=== PATIENT | female | born 1940 | race Caucasian/White ===

== ENCOUNTER 2016-07-16 13:38 | Outpatient (CLI) | payer MEDICARE, OTHER | END 2016-07-16 13:39 | disposition home or self-care (01) | DX: Z12.31 Encounter for screening mammogram for malignant neoplasm of breast (principal); Z80.3 Family history of malignant neoplasm of breast ==

== ENCOUNTER 2016-07-16 13:54 | Outpatient (CLI) | payer MEDICARE, OTHER | END 2016-07-16 13:55 | disposition home or self-care (01) | DX: M85.89 Other specified disorders of bone density and structure, multiple sites (principal); Z78.0 Asymptomatic menopausal state ==

== ENCOUNTER 2016-08-22 07:54 | Day surgery (SDC) | payer MEDICARE, OTHER ==
[2016-08-22] MEDS ORDERED: LACTATED RINGERS 1,000 ML IV ONE (08:29)
[2016-08-22] MEDS ORDERED: fentaNYL 250 MCG/5 ML VIAL IVP ONE (09:22)
[2016-08-22] MEDS ORDERED: MIDAZOLAM 2 MG/2 ML VIAL IVP ONE (09:22)
[2016-08-22] MEDS ORDERED: ONDANSETRON 4 MG/2 ML VIAL ONE (10:32)
== END 2016-08-22 07:55 | disposition home or self-care (01) ==
PROC: 0DJD8ZZ Inspection of Lower Intestinal Tract, Via Natural or Artificial Opening Endoscopic (ICD-10-PCS; principal; 2016-08-22 09:00)
DX: Z12.11 Encounter for screening for malignant neoplasm of colon (principal); K64.8 Other hemorrhoids; E03.9 Hypothyroidism, unspecified; Z88.2 Allergy status to sulfonamides
CPT/HCPCS: G0121; J3010; J7120

== ENCOUNTER 2016-09-12 06:50 | Outpatient (CLI) | payer MEDICARE, OTHER ==
[2016-09-12] MEDS ORDERED: GADOBUTROL 7.5 MMOL/7.5 ML VIAL IVP ONE (08:56)
== END 2016-09-12 06:51 | disposition home or self-care (01) ==
DX: G93.9 Disorder of brain, unspecified (principal)
CPT/HCPCS: 36415; 70553; 82565; A9585

== ENCOUNTER 2017-01-16 07:37 | Outpatient (CLI) | payer MEDICARE, OTHER ==
[2017-01-16 12:23] LABS: BASOPHILS # (AUTO) 0.1 10^3/uL (0.0-0.1); BASOPHILS % (AUTO) 2.4 %; EOSINOPHILS # (AUTO) 0.1 10^3/uL (0.0-0.7); EOSINOPHILS % (AUTO) 1.6 %; HCT - HEMATOCRIT 40.1 % (37.0-47.0); HGB - HEMOGLOBIN 13.6 g/dL (12.0-16.0); LYMPHOCYTES # (AUTO) 1.9 10^3/uL (1.5-3.5); MEAN CORPUSCULAR HEMOGLOBIN 31.5 pg (27.0-31.0); MEAN CORPUSCULAR HGB CONC 33.8 g/dL (32.0-36.0); MEAN CORPUSCULAR VOLUME 93.1 fL (81.0-99.0); MEAN PLATELET VOLUME 7.5 fL (7.9-10.8); MONOCYTES # (AUTO) 0.4 10^3/uL (0.0-1.0); MONOCYTES % (AUTO) 6.6 %; NEUTROPHILS # (AUTO) 3.5 10^3/uL (1.5-6.6); NEUTROPHILS % (AUTO) 58.4 %; NUCLEATED RED BLOOD CELLS AUTO 0.1 /100WBC; RED BLOOD COUNT 4.31 10^6/uL (4.20-5.40); RED CELL DISTRIBUTION WIDTH 12.7 % (12.0-15.0)
[2017-01-16 12:39] LABS: ALBUMIN/GLOBULIN RATIO 1.4 (1.0-2.2); BILIRUBIN,TOTAL 0.5 mg/dL (0.2-1.0); BUN - BLOOD UREA NITROGEN 14 mg/dL (6-20); CALCIUM 8.6 mg/dL (8.5-10.3); CARBON DIOXIDE - CO2 25 mmol/L (21-32); CHLORIDE 103 mmol/L (101-111); CREATININE 0.7 mg/dL (0.4-1.0); GFR - MDRD 82 (>89); GLUCOSE 91 mg/dL (70-100); POTASSIUM 3.5 mmol/L (3.5-5.0); SODIUM 136 mmol/L (135-145); TOTAL PROTEIN 6.9 g/dL (6.7-8.2)
[2017-01-18 12:37] LABS: ANA SCREEN NEGATIVE (NEGATIVE)
== END 2017-01-16 07:38 | disposition home or self-care (01) ==
LOC: LAB.R 07:37
PROVIDERS: ATTEND Nurse Practitioner Primary Care
DX: R15.2 Fecal urgency (principal); Z79.899 Other long term (current) drug therapy
CPT/HCPCS: 80053; 82378; 84443; 85025; 85651; 86038; 86140

== ENCOUNTER 2018-01-21 08:00 | Outpatient (CLI) | payer MEDICARE, OTHER ==
[2018-01-21 14:13] LABS: BASOPHILS # (AUTO) 0.1 10^3/uL (0.0-0.1); BASOPHILS % (AUTO) 1.5 %; EOSINOPHILS # (AUTO) 0.1 10^3/uL (0.0-0.7); EOSINOPHILS % (AUTO) 1.5 %; HGB - HEMOGLOBIN 13.9 g/dL (12.0-16.0); LYMPHOCYTES # (AUTO) 1.8 10^3/uL (1.5-3.5); MEAN CORPUSCULAR HEMOGLOBIN 31.8 pg (27.0-31.0); MEAN CORPUSCULAR HGB CONC 33.6 g/dL (32.0-36.0); MEAN CORPUSCULAR VOLUME 94.7 fL (81.0-99.0); MEAN PLATELET VOLUME 7.7 fL (7.9-10.8); MONOCYTES # (AUTO) 0.4 10^3/uL (0.0-1.0); MONOCYTES % (AUTO) 6.8 %; NEUTROPHILS # (AUTO) 3.5 10^3/uL (1.5-6.6); NEUTROPHILS % (AUTO) 59.2 %; PLT - PLATELET COUNT 312 10^3/uL (130-450); RED BLOOD COUNT 4.37 10^6/uL (4.20-5.40); RED CELL DISTRIBUTION WIDTH 12.8 % (12.0-15.0); WHITE BLOOD COUNT 5.9 x10^3/uL (4.8-10.8)
[2018-01-21 14:21] LABS: ALBUMIN 4.1 g/dL (3.2-5.5); ALBUMIN/GLOBULIN RATIO 1.4 (1.0-2.2); CALCIUM 8.8 mg/dL (8.5-10.3); CREATININE 0.7 mg/dL (0.4-1.0); TOTAL PROTEIN 7.1 g/dL (6.7-8.2)
== END 2018-01-21 08:01 ==
LOC: LAB.R 08:00
PROVIDERS: ATTEND Internal Medicine
DX: Z79.899 Other long term (current) drug therapy (principal); E55.9 Vitamin D deficiency, unspecified; I10 Essential (primary) hypertension; E03.9 Hypothyroidism, unspecified
CPT/HCPCS: 80053; 82306; 84443; 85025

== ENCOUNTER 2018-04-22 08:57 | Outpatient (CLI) | payer MEDICARE, OTHER | END 2018-04-22 08:58 | disposition home or self-care (01) | LOC: LAB.R 08:57 | PROVIDERS: ATTEND Internal Medicine | DX: E03.9 Hypothyroidism, unspecified (principal) | CPT/HCPCS: 84443 ==

== ENCOUNTER 2018-07-06 13:16 | Outpatient (CLI) | payer MEDICARE, OTHER ==
--- NOTE | 2018-07-07 10:36 | DEXA Report ---
Reason: IDIOPATHIC OSTEOPOROSIS Procedure Date: 07/06/2018 Accession Number: [id number] / [id number] Procedure: DEX - Dexa Spine and/or Hip CPT Code: FULL RESULT: EXAM: Dexa Spine and/or Hip DATE: 07/06/2018 1:59 PM CLINICAL HISTORY: IDIOPATHIC OSTEOPOROSIS. Postmenopausal. Steroid use. Hormone replacement therapy. TECHNIQUE: Dual energy x-ray absorptiometry (DXA) was performed on a Nevigo System. Regions measured are the AP Spine, femoral neck, and if needed forearm. COMPARISON: 07/16/2016. In accordance with the International Society for Clinical Densitometry (ISCD) guidelines, data from previous exams may be reanalyzed using current recommendations and techniques. This is done to allow a more accurate basis for comparison with the current study. FINDINGS: The data for the lumbar spine is as follows: BMD (g/cm/cm) T-SCORE Z-SCORE REGION L1 0.832 -2.5 -0.7 L2 0.925 -2.3 -0.5 L3 0.901 -2.5 -0.7 L4 0.959 -2.0 -0.2 TOTAL 0.909 -2.3 -0.4 NOTE: All evaluable vertebrae are used for classification The data for the hip is as follows: BMD (g/cm/cm) T-SCORE Z-SCORE REGION Neck 0.845 -1.4 0.6 TOTAL 0.856 -1.2 0.6 NOTE: The femoral neck or total proximal femur, whichever is lowest, is used for classification. DXA RESULTS SUMMARY: Spine SCAN DATE [age]GE BMD CHANGE VS CHANGE VS PREVIOUS PREVIOUS % 07/06/2018 [age] 0.909 -0.087* -8.7* 07/16/2016 [age] 0[age]996 * Denotes significant change at the 95% confidence level. Denotes dissimilar scan types or analysis methods. DXA RESULTS SUMMARY: Hip SCAN DATE [age]GE BMD CHANGE VS CHANGE VS PREVIOUS PREVIOUS % 07[birth year]06/2018 77.5 0.856 -0.004 -0.5 07/16/2016 [age] 0.860 * Denotes significant change at the 95% confidence level. Denotes dissimilar scan types or analysis methods. IMPRESSION: THE WHO CLASSIFICATION BASED ON THE INTERNATIONAL REFERENCE STANDARD IS OSTEOPENIA. THE FRACTURE RISK IS INCREASED. There has been a statistically significant 8.7% decrease in lumbar spine bone mineral density since 07/16/2016. RECOMMENDATION: Patients with diagnosis of osteoporosis or osteopenia should have regular bone mineral density assessment. For those eligible for Medicare, routine testing is allowed once every 2 years. Testing frequency can be increased for patients who have rapidly progressing disease or for those who are receiving medical therapy to restore bone mass. COMMENT: World Health Organization (WHO) definitions for osteoporosis and osteopenia: NORMAL BMD: T-score at -1.0 or higher, fracture risk is low OSTEOPENIA BMD: T-score between -1.0 and -2.5, fracture risk is increased. OSTEOPOROSIS BMD: T-score at -2.5 or lower, fracture risk is high. National Osteoporosis Foundation recommends: 1. Obtain adequate dietary calcium (at least 1200 mg per day) and vitamin D (400-800 international units per day). 2. Participate, as appropriate, in regular weightbearing and muscle-strengthening exercise. 3. Avoid tobacco use and reduce alcohol and caffeine intake. 4. For more detailed information see the website at www.NOF.org.
== END 2018-07-06 13:17 | disposition home or self-care (01) ==
LOC: DI 13:16
PROVIDERS: ATTEND Internal Medicine
DX: M85.89 Other specified disorders of bone density and structure, multiple sites (principal); Z78.0 Asymptomatic menopausal state
CPT/HCPCS: 77080

== ENCOUNTER 2018-07-28 14:29 | Emergency (ER) | payer MEDICARE, OTHER ==
--- NOTE | 2018-07-28 16:16 | ED Physician Documentation ---
History of Present Illness - Stated complaint Stated Complaint: FEMALE - Chief complaint Chief Complaint: Abd Pain - History obtained from History obtained from: Patient - History of Present Illness Timing: Today Pain level max: 0 Pain level now: 0 Improved by: lying down Worsened by: standing - Additonal information Additional information: 77-year-old female states that she was taking a bath today when she noticed a balloon-like object bulging from her vagina. No pain. No bleeding or discharge. Has never had this happen before. She has had one child via vaginal delivery in the past. Has had problems with her rectum in the past. Review of Systems Constitutional: denies: Fever, Chills Respiratory: denies: Cough GI: denies: Vomiting : denies: Dysuria, Frequency, Hesitancy Skin: denies: Rash Musculoskeletal: denies: Neck pain, Back pain Neurologic: denies: Headache PD PAST MEDICAL HISTORY - Past Medical History Past Medical History: Yes Cardiovascular: Hypertension Respiratory: None Endocrine/Autoimmune: HyPOthyroidism GI: None : None HEENT: None Psych: None Musculoskeletal: Other Derm: None - Past Surgical History Past Surgical History: Yes General: Colonoscopy - Present Medications Home Medications: Ambulatory Orders Medication Instructions Recorded Confirmed Estrogen,Con/M-Progest Acet 1 tab ORAL DAILY 05/12/15 08/22/16 [Prempro 0.3 mg-1.5 mg Tablet] Levothyroxine [Synthroid] 0 mcg ORAL DAILY 05/12/15 08/22/16 Lisinopril 5 mg ORAL DAILY 05/12/15 08/22/16 - Allergies Allergies/Adverse Reactions: Allergies Allergy/AdvReac Type Severity Reaction Status Date / Time Sulfa (Sulfonamide AdvReac Nausea Verified 07/28/18 14:37 Antibiotics) - Social History Does the pt smoke?: No Smoking Status: Never smoker Does the pt drink ETOH?: No Does the pt have substance abuse?: No - Immunizations Immunizations are current?: Yes - POLST Patient has POLST: No PD ED PE NORMAL - Vitals Vital signs reviewed: Yes - General General: Alert and oriented X 3, No acute distress - HEENT HEENT: Moist mucous membranes - Cardiac Cardiac: RRR - Respiratory Respiratory: No respiratory distress, Clear bilaterally - Abdomen Abdomen: Soft, Non tender, Non distended - Female Female : Other (bladder prolapse, easily reducible. otherwise normal exam. also mild cervical prolapse) - Derm Derm: Warm and dry - Neuro Neuro: Alert and oriented X 3 - Psych Psych: Normal mood, Normal affect Results - Vitals Vitals: Vital Signs - 24 hr 07/28/18 07/28/18 14:33 16:23 Temperature 36.8 C 36.8 C Heart Rate 68 68 Respiratory 18 18 Rate Blood Pressure 143/71 H 140/71 H O2 Saturation 97 97 Oxygen O2 Source Room air PD MEDICAL DECISION MAKING - ED course Complexity details: considered differential, d/w patient ED course: 77-year-old female presents the emergency department with what appears to be a cystocele and incomplete cervical prolapse. We will have her follow-up with gynecology for further care. Patient counseled regarding signs and symptoms for which I believe and urgent re-evaluation would be necessary. Patient with good understanding of and agreement to plan and is comfortable going home at this time This document was made in part using voice recognition software. While efforts are made to proofread this document, sound alike and grammatical errors may occur. Departure - Departure Disposition: 01 Home, Self Care Clinical Impression: Cystocele with incomplete uterovaginal prolapse Condition: Good Instructions: Pelvic Organ Prolapse, Cystocele Follow-Up: Tex Morgan MD [Primary Care Provider] - Within 1 week [facility] [Provider Group] Comments: Return if you worsen. you would benefit from a referral to gynecology for further evaluation. Discharge Date/Time: 07/28/18 16:23
[2018-07-28 16:24] VITALS: BP 140/71
== END 2018-07-28 16:23 | disposition home or self-care (01) ==
LOC: ED 14:29
DX: N81.2 Incomplete uterovaginal prolapse (principal); I10 Essential (primary) hypertension; E03.9 Hypothyroidism, unspecified
CPT/HCPCS: 99283

== ENCOUNTER 2018-10-01 18:42 | Emergency (ER) | payer MEDICARE, OTHER ==
[2018-10-01 19:06] LABS: BASOPHILS # (AUTO) 0.1 10^3/uL (0.0-0.1); BASOPHILS % (AUTO) 1.3 %; EOSINOPHILS # (AUTO) 0.1 10^3/uL (0.0-0.7); EOSINOPHILS % (AUTO) 2.1 %; LYMPHOCYTES # (AUTO) 2.7 10^3/uL (1.5-3.5); LYMPHOCYTES % (AUTO) 40.6 %; MEAN CORPUSCULAR HEMOGLOBIN 31.3 pg (27.0-31.0); MEAN CORPUSCULAR HGB CONC 33.1 g/dL (32.0-36.0); MEAN CORPUSCULAR VOLUME 94.4 fL (81.0-99.0); MEAN PLATELET VOLUME 7.7 fL (7.9-10.8); MONOCYTES # (AUTO) 0.6 10^3/uL (0.0-1.0); MONOCYTES % (AUTO) 8.8 %; NEUTROPHILS # (AUTO) 3.1 10^3/uL (1.5-6.6); NEUTROPHILS % (AUTO) 47.2 %; PLT - PLATELET COUNT 267 10^3/uL (130-450); RED BLOOD COUNT 4.47 10^6/uL (4.20-5.40); RED CELL DISTRIBUTION WIDTH 13.1 % (12.0-15.0); WHITE BLOOD COUNT 6.6 x10^3/uL (4.8-10.8)
[2018-10-01 19:19] LABS: ALBUMIN 4.2 g/dL (3.2-5.5); ALBUMIN/GLOBULIN RATIO 1.5 (1.0-2.2); BILIRUBIN,TOTAL 0.6 mg/dL (0.2-1.0); CREATININE 0.9 mg/dL (0.4-1.0)
--- NOTE | 2018-10-01 19:28 | ED Physician Documentation ---
PD HPI CHEST PAIN - Stated complaint Stated Complaint: HEART PALP/IRREG BP - Chief complaint Chief Complaint: Cardiac - History obtained from History obtained from: Patient - History of Present Illness Timing - onset: Other (This is a 77-year-old woman with history of hypothyroidism, chronic GI complaints. She has been fatigued for several months now. She saw her physician at the beginning of June and her thyroid level was low so thyroid hormone was increased. She is noticed for basically as long as she can remember that her blood pressure monitor was reading irregular. Today she went for a walk and bought a new blood pressure monitor because she had up the old one was drawn and this 1 was also reading irregular. She denies shortness of breath. She has ongoing chronic chest pain that she cannot tell me whether it comes and goes or is chronic. She denies pedal edema. She has not anticoagulated or on any diuretics.) Review of Systems Ten Systems: 10 systems reviewed and negative Constitutional: reports: Fatigue. 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: Other : Incontinence HEENT: None Psych: None Musculoskeletal: Other Derm: None Other Past Medical History: pelvic floor prolapse - Past Surgical History Past Surgical History: Yes General: Colonoscopy - Present Medications Home Medications: Ambulatory Orders Medication Instructions Recorded Confirmed Estrogen,Con/M-Progest Acet 1 tab ORAL DAILY 05/12/15 10/01/18 [Prempro 0.3 mg-1.5 mg Tablet] Cholecalciferol (Vitamin D3) 2,000 unit PO DAILY 09/30/18 10/01/18 [Vitamin D] Progesterone,Micronized 100 mg PO DAILY PM 09/30/18 10/01/18 [Progesterone] RX: Levothyroxine Sodium 50 mcg PO DAILY 09/30/18 10/01/18 RX: Lisinopril 2.5 mg PO DAILY 09/30/18 10/01/18 - Allergies Allergies/Adverse Reactions: Allergies Allergy/AdvReac Type Severity Reaction Status Date / Time Sulfa (Sulfonamide AdvReac Nausea Verified 10/01/18 18:54 Antibiotics) - Social History Does the pt smoke?: No Smoking Status: Never smoker Does the pt drink ETOH?: No Does the pt have substance abuse?: No - Family History Family history: reports: Non contributory - Immunizations Immunizations are current?: Yes - POLST Patient has POLST: No PD ED PE NORMAL - Vitals Vital signs reviewed: Yes - General General: Alert and oriented X 3, No acute distress - HEENT HEENT: PERRL, EOMI - Neck Neck: Supple, no meningeal sign, No bony TTP - Cardiac Cardiac: RRR (With frequent extrasystoles), No murmur - Respiratory Respiratory: No respiratory distress, Clear bilaterally - Abdomen Abdomen: Non tender - Derm Derm: Normal color, Warm and dry - Extremities Extremities: No edema, No calf tenderness / cord - Neuro Neuro: Alert and oriented X 3, Normal speech Results - Vitals Vitals: Vital Signs - 24 hr 10/01/18 10/01/18 10/01/18 18:51 20:35 21:02 Temperature 36.2 C L Heart Rate 74 72 74 Respiratory 20 15 21 Rate Blood Pressure 153/76 H 143/69 H 143/69 H O2 Saturation 98 100 97 Oxygen O2 Source Room air - EKG (time done) 1849 Rate: Rate (enter#) (83) Rhythm: NSR (Normal sinus rhythm with frequent ectopy. On the monitor she has a mixture of both PACs and PVCs. No runs of V. tach.) [place]: Normal Intervals: Normal [place] QRS: Normal Ischemia: Non specific changes Computer interpretation: Agree with computer - Labs Labs: Laboratory Tests 10/01/18 10/01/18 10/01/18 19:00 19:00 19:00 WBC 6.6 RBC 4.47 Hgb 14.0 Hct 42.2 MCV 94.4 MCH 31.3 H MCHC 33.1 RDW 13.1 Plt Count 267 MPV 7.7 L Neut # (Auto) 3.1 Lymph # (Auto) 2.7 [place] # (Auto) 0.6 Eos # (Auto) 0.1 Baso # (Auto) 0.1 Absolute Nucleated RBC 0.00 Nucleated RBC % 0.0 Sodium 138 Potassium 3.8 Chloride 100 L Carbon Dioxide 28 Anion Gap 10.0 BUN 27 H Creatinine 0.9 Estimated GFR (MDRD) 61 L Glucose 103 H Calcium 9.0 Total Bilirubin 0.6 AST 27 ALT 18 Alkaline Phosphatase 75 Troponin I < 0.04 Total Protein 7.0 Albumin 4.2 Globulin 2.8 Albumin/Globulin Ratio 1.5 Lipase 54 H TSH Thyroxine (T4) Free T3 pg/mL 10/01/18 10/01/18 19:00 19:00 WBC RBC Hgb Hct MCV MCH MCHC RDW Plt Count MPV Neut # (Auto) Lymph # (Auto) [place] # (Auto) Eos # (Auto) Baso # (Auto) Absolute Nucleated RBC Nucleated RBC % Sodium Potassium Chloride Carbon Dioxide Anion Gap BUN Creatinine Estimated GFR (MDRD) Glucose Calcium Total Bilirubin AST ALT Alkaline Phosphatase Troponin I Total Protein Albumin Globulin Albumin/Globulin Ratio Lipase TSH 7.95 H Thyroxine (T4) 7.28 Free T3 pg/mL 3.99 H PD MEDICAL DECISION MAKING - ED course ED course: This is a 77-year-old woman who has probably chronic ectopy given her desc ription. Her work-up tonight is reassuring without evidence of acute serious illness. Cardiology follow-up was advised. Departure - Departure Disposition: 01 Home, Self Care Clinical Impression: Ventricular ectopy, Dehydration Condition: Good Record reviewed to determine appropriate education?: Yes Instructions: ED Dysrhythmia Unspecified Comments: Return for new or worsening symptoms. Follow-up with your doctor, I would recommend she refer you for either an echocardiogram and stress test or cardiology referral. There is no urgency to this. Discharge Date/Time: 10/01/18 21:05
--- NOTE | 2018-10-01 20:00 | XRAY Report ---
Reason: chest pain Procedure Date: 10/01/2018 Accession Number: [id number] / [id number] Procedure: XR - Chest 2 View X-Ray CPT Code: 78246 FULL RESULT: EXAM: CHEST RADIOGRAPHY EXAM DATE: 10/01/2018 07:38 PM. CLINICAL HISTORY: Chest pain. COMPARISON: CHEST 2 VIEW PA/LAT 05/12/2015 2:34 PM. TECHNIQUE: 2 views. FINDINGS: Cardiac leads overlie the chest. Heart size is normal. Calcified plaques in the aortic arch. No consolidation, pleural effusion, or pneumothorax. IMPRESSION: No acute cardiopulmonary findings. RADIA
[2018-10-01] MEDS ORDERED: SODIUM CHLORIDE 0.9% 1,000 ML IV ONE (20:08)
[2018-10-01 20:22] LABS: T4 (THYROXINE) 7.28 ug/dL (6.09-12.23)
[2018-10-01 20:26] LABS: THYROID STIMULATING HORMONE 7.95 uIU/mL (0.34-5.60)
[2018-10-01 20:35] VITALS: BP 143/69
== END 2018-10-01 21:05 | disposition home or self-care (01) ==
LOC: ED 18:42
DX: I49.3 Ventricular premature depolarization (principal); E86.0 Dehydration; I10 Essential (primary) hypertension; E03.9 Hypothyroidism, unspecified
CPT/HCPCS: 36415; 71046; 80053; 83690; 84436; 84443; 84481; 84484; 85025; 93005; 96360; 99283; 99284

== ENCOUNTER 2018-10-03 14:43 | Emergency (ER) | payer MEDICARE, OTHER ==
[2018-10-03 15:04] LABS: BASOPHILS # (AUTO) 0.1 10^3/uL (0.0-0.1); EOSINOPHILS # (AUTO) 0.1 10^3/uL (0.0-0.7); HGB - HEMOGLOBIN 14.2 g/dL (12.0-16.0); LYMPHOCYTES # (AUTO) 2.4 10^3/uL (1.5-3.5); LYMPHOCYTES % (AUTO) 37.2 %; MEAN CORPUSCULAR HEMOGLOBIN 31.5 pg (27.0-31.0); MEAN CORPUSCULAR HGB CONC 33.6 g/dL (32.0-36.0); MEAN CORPUSCULAR VOLUME 93.7 fL (81.0-99.0); MEAN PLATELET VOLUME 7.5 fL (7.9-10.8); MONOCYTES # (AUTO) 0.5 10^3/uL (0.0-1.0); NEUTROPHILS # (AUTO) 3.3 10^3/uL (1.5-6.6); NEUTROPHILS % (AUTO) 51.8 %; PLT - PLATELET COUNT 278 10^3/uL (130-450); RED BLOOD COUNT 4.51 10^6/uL (4.20-5.40); RED CELL DISTRIBUTION WIDTH 13.3 % (12.0-15.0); WHITE BLOOD COUNT 6.4 x10^3/uL (4.8-10.8)
[2018-10-03 15:22] LABS: ALBUMIN 4.3 g/dL (3.2-5.5); ALBUMIN/GLOBULIN RATIO 1.4 (1.0-2.2); BILIRUBIN,TOTAL 0.5 mg/dL (0.2-1.0); CALCIUM 8.9 mg/dL (8.5-10.3); CREATININE 0.6 mg/dL (0.4-1.0); TOTAL PROTEIN 7.4 g/dL (6.7-8.2)
--- NOTE | 2018-10-03 15:41 | XRAY Report ---
Reason: chest pain Procedure Date: 10/03/2018 Accession Number: [id number] / [id number] Procedure: XR - Chest 1 View X-Ray CPT Code: 51178 FULL RESULT: EXAM: CHEST RADIOGRAPHY EXAM DATE: 10/03/2018 03:11 PM. CLINICAL HISTORY: Chest pain. COMPARISON: CHEST 2 VIEW 10/01/2018 7:11 PM. TECHNIQUE: 1 view. FINDINGS: Lungs/Pleura: No focal opacities evident. No pleural effusion. No pneumothorax. Mediastinum: Within exam limitations, the cardiomediastinal contour is normal. Other: None. IMPRESSION: No radiographic evidence for acute cardiopulmonary process. RADIA
--- NOTE | 2018-10-03 15:42 | ED Physician Documentation ---
History of Present Illness - Stated complaint Stated Complaint: CHEST PX - Chief complaint Chief Complaint: Cardiac - History obtained from History obtained from: Patient - History of Present Illness Timing: How many weeks ago - Additonal information Additional information: 77-year-old female with a history of hypertension and bladder prolapse as well as thyroid disease and depression has developed a sensation of palpitations in her chest and her blood pressure monitor is reading irregular. She has become more anxious and has come to the emergency department for reevaluation. She was seen in the emergency department 2 days ago and hydrated with the diagnosis of dehydration and palpitations. She relates that she has recently developed a prolapsed bladder and she is undergoing physical therapy for this. 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 She does have depression and she has previously recovered well with medication. Review of Systems Constitutional: reports: Myalgias, Fatigue. denies: Fever, Chills, Sweats Eyes: denies: Decreased vision Ears: denies: Ear pain Nose: denies: Rhinorrhea / runny nose, Congestion Throat: denies: Sore throat Cardiac: reports: Palpitations. denies: Chest pain / pressure, Pedal edema, Calf pain Respiratory: denies: Dyspnea, Cough GI: denies: Abdominal Pain, Nausea, Vomiting, Constipation, Diarrhea : reports: Frequency. denies: Dysuria Skin: denies: Rash Musculoskeletal: denies: Neck pain, Back pain, Extremity pain Neurologic: reports: Generalized weakness. 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: Other : Incontinence HEENT: None Psych: None Musculoskeletal: Other Derm: None - Past Surgical History Past Surgical History: Yes General: Colonoscopy - Present Medications Home Medications: Ambulatory Orders Medication Instructions Recorded Confirmed Estrogen,Con/M-Progest Acet 1 tab ORAL DAILY 05/12/15 10/01/18 [Prempro 0.3 mg-1.5 mg Tablet] Cholecalciferol (Vitamin D3) 2,000 unit PO DAILY 09/30/18 10/01/18 [Vitamin D] Progesterone,Micronized 100 mg PO DAILY PM 09/30/18 10/01/18 [Progesterone] RX: Levothyroxine Sodium 50 mcg PO DAILY 09/30/18 10/01/18 RX: Lisinopril 2.5 mg PO DAILY 09/30/18 10/01/18 - Allergies Allergies/Adverse Reactions: Allergies Allergy/AdvReac Type Severity Reaction Status Date / Time Sulfa (Sulfonamide AdvReac Nausea Verified 10/01/18 18:54 Antibiotics) - Social History Does the pt smoke?: No Smoking Status: Never smoker Does the pt drink ETOH?: No Does the pt have substance abuse?: No - Immunizations Immunizations are current?: Yes - POLST Patient has POLST: No PD ED PE NORMAL - Vitals Vital signs reviewed: Yes (tachy ) - General General: Alert and oriented X 3, No acute distress, Well developed/nourished - HEENT HEENT: Atraumatic, PERRL, EOMI - Neck Neck: Supple, no meningeal sign, No bony TTP - Cardiac Cardiac: No murmur, Other (regularly irregular rhythm ) - Respiratory Respiratory: No respiratory distress, Clear bilaterally - Abdomen Abdomen: Soft, Non tender - Back Back: No CVA TTP, No spinal TTP - Derm Derm: Normal color, Warm and dry, No rash - Extremities Extremities: No deformity, No edema - Neuro Neuro: Alert and oriented X 3, buying intern 2-12 intact, No motor deficit, No sensory deficit, Normal speech Eye Opening: Spontaneous Motor: Obeys Commands Verbal: Oriented GCS Score: 15 - Psych Psych: Other (affect is flat mood is sad with occ crying ) Results - Vitals Vitals: Vital Signs - 24 hr 10/03/18 10/03/18 10/03/18 14:47 16:29 17:35 Temperature 36.2 C L 36.2 C L 36.3 C L Heart Rate 83 72 69 Respiratory 18 20 12 Rate Blood Pressure 166/68 H 129/74 159/68 H O2 Saturation 97 98 98 Oxygen O2 Source Room air - EKG (time done) 1449 Rate: Rate (enter#) (83) Rhythm: Other (ventricular trigeminy) Compare to prior EKG: Old EKG unavailable Computer interpretation: Agree with computer - Labs Labs: Laboratory Tests 10/03/18 10/03/18 10/03/18 14:50 14:50 14:50 WBC 6.4 RBC 4.51 Hgb 14.2 Hct 42.2 MCV 93.7 MCH 31.5 H MCHC 33.6 RDW 13.3 Plt Count 278 MPV 7.5 L Neut # (Auto) 3.3 Lymph # (Auto) 2.4 [place] # (Auto) 0.5 Eos # (Auto) 0.1 Baso # (Auto) 0.1 Absolute Nucleated RBC 0.00 Nucleated RBC % 0.0 Sodium 139 Potassium 3.5 Chloride 103 Carbon Dioxide 29 Anion Gap 7.0 BUN 21 H Creatinine 0.6 Estimated GFR (MDRD) 97 Glucose 105 H Calcium 8.9 Total Bilirubin 0.5 AST 32 ALT 23 Alkaline Phosphatase 66 Troponin I < 0.04 Total Protein 7.4 Albumin 4.3 Globulin 3.1 Albumin/Globulin Ratio 1.4 Lipase 51 TSH Urine Color Urine Clarity Urine pH Ur Specific [place] Urine Protein Urine Glucose (UA) Urine Ketones Urine Occult Blood Urine Nitrite Urine Bilirubin Urine Urobilinogen Ur Leukocyte Esterase Ur Microscopic Review Urine Culture Comments 10/03/18 10/03/18 14:50 15:55 WBC RBC Hgb Hct MCV MCH MCHC RDW Plt Count MPV Neut # (Auto) Lymph # (Auto) [place] # (Auto) Eos # (Auto) Baso # (Auto) Absolute Nucleated RBC Nucleated RBC % Sodium Potassium Chloride Carbon Dioxide Anion Gap BUN Creatinine Estimated GFR (MDRD) Glucose Calcium Total Bilirubin AST ALT Alkaline Phosphatase Troponin I Total Protein Albumin Globulin Albumin/Globulin Ratio Lipase TSH 4.33 Urine Color YELLOW Urine Clarity CLEAR Urine pH 6.0 Ur Specific [place] <=1.005 Urine Protein NEGATIVE Urine Glucose (UA) NEGATIVE Urine Ketones NEGATIVE Urine Occult Blood NEGATIVE Urine Nitrite NEGATIVE Urine Bilirubin NEGATIVE Urine Urobilinogen 0.2 (NORMAL) Ur Leukocyte Esterase NEGATIVE Ur Microscopic Review NOT INDICATED Urine Culture Comments NOT INDICATED - Rads (name of study) chest Radiology: Prelim report reviewed (Impression: No radiographic evidence for acute cardiopulmonary process.), EMP read indepedently, See rad report Procedures - IVC sono (time) 1530 Bedside IVC sono: IVC measures (cm) (1.01), IVC collapsed c insp (cm) (complete), Dehydration (est 1-2 liter deficit) PD MEDICAL DECISION MAKING - ED course Complexity details: reviewed old records, reviewed results, re-evaluated patient, considered differential, d/w patient ED course: 77-year-old female recently diagnosed with palpitations and dehydration returns to the emergency department she is still mildly dehydrated and she does have ventricular trigeminy. By review of her history she does have a new puppy and may be exhausted having to get up with the puppy frequently. She is administered saline has resolution of her symptoms and has no other abnormalities to her laboratory work just a more significant process. Departure - Departure Disposition: 01 Home, Self Care Clinical Impression: Dehydration, Ventricular ectopy Condition: Stable Instructions: ED Dehydration, ED Palpitations Follow-Up: Zaki Centeno MD [Primary Care Provider] - Discharge Date/Time: 10/03/18 17:45
[2018-10-03 16:04] LABS: BILIRUBIN,URINE NEGATIVE (NEGATIVE); GLUCOSE, URINE (UA) NEGATIVE (NEGATIVE); KETONES,URINE (UA) NEGATIVE (NEGATIVE); LEUKOCYTE ESTERASE, URINE NEGATIVE (NEGATIVE); NITRITE,URINE NEGATIVE (NEGATIVE); OCCULT BLOOD,URINE NEGATIVE (NEGATIVE); PROTEIN,URINE NEGATIVE (NEGATIVE); UROBILINOGEN,URINE 0.2 (NORMAL) E.U./dL (NORMAL)
[2018-10-03 16:06] LABS: CLARITY,URINE CLEAR (CLEAR)
[2018-10-03] MEDS ORDERED: SODIUM CHLORIDE 0.9% 1,000 ML IV ONE (16:34)
[2018-10-03 17:36] VITALS: BP 159/68
== END 2018-10-03 17:45 | disposition home or self-care (01) ==
LOC: ED 14:43
DX: E86.0 Dehydration (principal); I49.3 Ventricular premature depolarization; R94.31 Abnormal electrocardiogram [ECG] [EKG]; I10 Essential (primary) hypertension; E03.9 Hypothyroidism, unspecified
CPT/HCPCS: 36415; 71045; 80053; 81001; 81003; 83690; 84443; 84484; 85025; 87086; 93005; 99284

== ENCOUNTER 2019-05-03 09:27 | Outpatient (CLI) | payer MEDICARE, OTHER ==
--- NOTE | 2019-05-03 13:12 | XRAY Report ---
Reason: SEVERE PROLONGED B/L KNEE PAIN,R HIP PAIN Procedure Date: 05/03/2019 Accession Number: [id number] / [id number] Procedure: XR - Knee 3 View BILAT CPT Code: Final Report FULL RESULT: EXAMS: 1. RIGHT KNEE RADIOGRAPHY 2. LEFT KNEE RADIOGRAPHY EXAM DATE:05/03/2019 10:36 AM. CLINICAL HISTORY:Severe prolonged bilateral knee pain, right hip pain. COMPARISON: None. TECHNIQUE: 3 views each. FINDINGS: Right Knee: Bones: Normal. No fractures or bone lesions. Joints: Normal. No effusion. No subluxations. Soft Tissues: Normal. No soft tissue swelling. Left Knee: Bones: Normal. No fractures or bone lesions. Joints: Normal. No effusion. No subluxations. Soft Tissues: Normal. No soft tissue swelling. IMPRESSION: No acute bony abnormality. RADIA
--- NOTE | 2019-05-03 13:41 | XRAY Report ---
Reason: SEVERE PROLONGED B/L KNEE PAIN,R HIP PAIN Procedure Date: 05/03/2019 Accession Number: [id number] / [id number] Procedure: XR - Hip w/Pelvis 2-3V RT CPT Code: Final Report FULL RESULT: EXAM: RIGHT HIP RADIOGRAPHY EXAM DATE: 05/03/2019 10:35 AM. CLINICAL HISTORY: Severe prolonged bilateral knee pain, right hip pain. COMPARISON: None. TECHNIQUE: 2 views. FINDINGS: Bones: Normal. No fractures or bone lesion. Joints: Mild to moderate asymmetric right joint space narrowing with mild to moderate marginal osteophytosis of the right femoral head. Mild degenerative changes of the SI joints. Soft Tissues: Normal. No soft tissue swelling. 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 No appreciable acute fracture or malalignment. RADIA
== END 2019-05-03 09:28 | disposition home or self-care (01) ==
LOC: DI 09:27
PROVIDERS: ATTEND Family Medicine
DX: M16.11 Unilateral primary osteoarthritis, right hip (principal); M25.561 Pain in right knee; M25.562 Pain in left knee

== ENCOUNTER 2019-12-23 14:46 | Outpatient (CLI) | payer MEDICARE, OTHER ==
--- NOTE | 2019-12-23 18:09 | DEXA Report ---
Reason: POST MENOPAUSAL Procedure Date: 12/23/2019 Accession Number: [id number] / [id number] Procedure: DEX - Dexa Spine and/or Hip CPT Code: Final Report FULL RESULT: PROCEDURE: Dexa Spine and/or Hip INDICATIONS: POST MENOPAUSAL TECHNIQUE: Dual energy x-ray absorptiometry (DXA) was performed on a [employer] System. Regions measured are the AP Spine, femoral neck, and if needed forearm. COMPARISON: None. FINDINGS: Lumbar Spine: Bone Mineral Density 0.948 g/cm/cm,T score -1.9, osteopenia Left Femoral Neck: Bone Mineral Density 0.846 g/cm/cm, T score -1.3, osteopenia (T score greater or equal to -1.0: NORMAL) (T score from -1.1 to -2.4: OSTEOPENIA) (T score less than or equal to -2.5 to: OSTEOPOROSIS) Impression: Osteopenia. Patient is at increased risk for fracture. Patients with diagnosis of osteoporosis or osteopenia should have regular bone mineral density assessment. For those eligible for Medicare, routine testing is allowed once every 2 years. Testing frequency can be increased for patients who have rapidly progressing disease or for those who are receiving medical therapy to restore bone mass. Reviewed by: Suresh Patel MD on 12/23/2019 6:07 PM PDT Approved by: Suresh Patel MD on 12/23/2019 6:07 PM PDT Station ID: [id number]
== END 2019-12-23 14:47 | disposition home or self-care (01) ==
LOC: DI 14:46
PROVIDERS: ATTEND Family Medicine
DX: M85.89 Other specified disorders of bone density and structure, multiple sites (principal)
CPT/HCPCS: 77080

== ENCOUNTER 2020-09-22 11:06 | Outpatient (CLI) | payer MEDICARE, OTHER ==
--- NOTE | 2020-09-25 10:09 | Mammography Report ---
BILATERAL DIGITAL SCREENING MAMMOGRAM 3D/2D: 09/22/2020 CLINICAL: Routine screening. Comparison is made to exams dated: 07/16/2016 mammogram and 06/14/2015 mammogram - [facility]. There are scattered fibroglandular elements in both breasts. No significant masses, calcifications, or other findings are seen in either breast. There has been no significant interval change. IMPRESSION: NEGATIVE There is no mammographic evidence of malignancy. A 1 year screening mammogram is recommended. This exam was interpreted at Station ID: [id number]. NOTE: For mammograms, a report in lay terms will be sent to the patient. Approximately 15% of breast malignancies will not be visualized mammographically. In the management of a palpable breast mass, a negative mammogram must not discourage biopsy of a clinically suspicious lesion. Electronically Signed By: Flaco Gray M.D. ddp/penrad:09/22/2020 12:04:55 ACR BI-RADS Category 1: Negative [id number] PARENCHYMAL PATTERN: (A) - The breast(s) demonstrate(s) scattered fibroglandular densities. BI-RADS CATEGORY: (1) - 1 RECOMMENDATION: (ANNUAL) - Recommend routine annual screening mammography. [id number] 1 year screening LATERALITY: (B)
== END 2020-09-22 11:07 | disposition home or self-care (01) ==
LOC: DI 11:06
PROVIDERS: ATTEND Family Medicine
DX: Z12.31 Encounter for screening mammogram for malignant neoplasm of breast (principal)

== ENCOUNTER 2020-09-27 22:27 | Emergency (ER) | payer MEDICARE, OTHER ==
--- NOTE | 2020-09-28 00:51 | ED Physician Documentation ---
History of Present Illness - Stated complaint Stated Complaint: HBP - Chief complaint Chief Complaint: Cardiac - History obtained from History obtained from: Patient - Additonal information Additional information: 79-year-old woman with history of high blood pressure and anxiety on 20 mg of Propranolol daily presents with persistent high blood pressure readings over the past week. Patient is otherwise asymptomatic and denies lightheadedness, nausea, diaphoresis, shortness of breath, chest pain, fevers or other concerning symptoms. 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 : Incontinence HEENT: None Psych: None Musculoskeletal: Other Derm: None - Past Surgical History Past Surgical History: Yes General: Colonoscopy - Present Medications Home Medications: Ambulatory Orders Medication Instructions Recorded Confirmed Cholecalciferol (Vitamin D3) 2,000 unit PO DAILY 09/30/18 12/25/18 [Vitamin D] Levothyroxine Sodium 25 mcg PO BID 09/30/18 12/25/18 Progesterone, Micronized 100 mg PO DAILY PM 09/30/18 12/25/18 [Progesterone] Propranolol HCl 10 mg PO DAILY 12/09/18 12/25/18 Estradiol 0.05 mg Patch [Climara 1 patch TOP OAW 12/25/18 12/25/18 0.05 mg] Liothyronine Sodium 1 tab PO BID 12/25/18 12/25/18 Prasterone (Dhea) [Dhea] 1 tab PO BID 12/25/18 12/25/18 Pregnanedione 1 each PO BID 12/25/18 12/25/18 S-Adenosylmethionine Sul Tosyl 400 mg PO DAILY 01/06/19 01/06/19 [Deniz-E] Vitamin B Complex 1 each PO DAILY 01/06/19 01/06/19 amLODIPine [Norvasc] 5 mg PO DAILY 30 Days #30 tablet 09/28/20 - Allergies Allergies/Adverse Reactions: Allergies Allergy/AdvReac Type Severity Reaction Status Date / Time Sulfa (Sulfonamide AdvReac Nausea Verified 09/27/20 22:39 Antibiotics) - Social History Does the pt smoke?: No Smoking Status: Never smoker Does the pt drink ETOH?: No Does the pt have substance abuse?: No - Immunizations Immunizations are current?: Yes - POLST Patient has POLST: No PD ED PE NORMAL - Vitals Vital signs reviewed: Yes - General General: Alert and oriented X 3, No acute distress, Well developed/nourished - HEENT HEENT: Atraumatic, PERRL, EOMI - Neck Neck: Supple, no meningeal sign - Cardiac Cardiac: RRR - Respiratory Respiratory: No respiratory distress, Clear bilaterally - Abdomen Abdomen: Non tender, Non distended - Derm Derm: Normal color, Warm and dry - Extremities Extremities: No deformity - Neuro Neuro: Alert and oriented X 3 - Psych Psych: Normal mood, Normal affect Results - Vitals Vitals: Vital Signs - 24 hr 09/27/20 09/28/20 09/28/20 22:39 00:52 00:58 Temperature 36.7 C Heart Rate 64 90 Respiratory 18 16 16 Rate Blood Pressure 196/85 H 155/71 H O2 Saturation 98 100 Oxygen O2 Source Room air PD MEDICAL DECISION MAKING - ED course ED course: 79-year-old woman presents with asymptomatic hypertension. She showed me her blood pressure readings and she did have several readings above 140 systolic therefore I offered to prescribe her a course of amlodipine. She will follow up with her primary doctor. Return precautions given peer Departure - Departure Disposition: 01 Home, Self Care Clinical Impression: Asymptomatic hypertension Condition: Good Instructions: Hypertension Dc Follow-Up: Cas Styles MD [Primary Care Provider] - Prescriptions: amLODIPine [Norvasc] 5 mg PO DAILY 30 Days #30 tablet Comments: You were seen in the emergency department for the high blood pressure. Please return to the emergency department if you develop any severe lightheadedness, chest pain that is crushing, shortness of breath, shortness of breath with exertion, vomiting, or have other symptoms that concern you. Please follow-up with your primary doctor this week. Discharge Date/Time: 09/28/20 00:59
[2020-09-28 00:52] VITALS: BP 155/71
== END 2020-09-28 00:59 | disposition home or self-care (01) ==
LOC: ED 22:27
DX: I10 Essential (primary) hypertension (principal)
CPT/HCPCS: 93005; 99283

== ENCOUNTER 2021-01-05 07:37 | Emergency (ER) | payer MEDICARE, OTHER ==
[2021-01-05 07:46] VITALS: BP 147/75
[2021-01-05] MEDS ORDERED: diphenhydrAMINE 25 MG CAPSULE PO STA (07:48)
[2021-01-05] MEDS ORDERED: IBUPROFEN 400 MG TABLET PO STA (08:11)
--- NOTE | 2021-01-05 08:14 | ED Physician Documentation ---
PD HPI SKIN - Stated complaint Stated Complaint: WASP STING - Chief complaint Chief Complaint: Wound - History obtained from History obtained from: Patient - Additional information Additional information: 80-year-old woman Presents after wasp sting 3 days ago to the right palm of the hand with progressive redness to the hand, warmth, pain, streaking up the wrist. No pain with range of motion of the wrist or fingers. [id number]. Denies fevers. 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 HEENT: None Psych: None Musculoskeletal: Other Derm: None - Past Surgical History Past Surgical History: Yes General: Colonoscopy - Present Medications Home Medications: Ambulatory Orders Medication Instructions Recorded Confirmed Cholecalciferol (Vitamin D3) 2,000 unit PO DAILY 09/30/18 01/05/21 [Vitamin D] Levothyroxine Sodium 25 mcg PO BID 09/30/18 01/05/21 Progesterone, Micronized 100 mg PO DAILY PM 09/30/18 01/05/21 [Progesterone] Propranolol HCl 5 mg PO DAILY 12/09/18 01/05/21 Liothyronine Sodium 1 tab PO BID 12/25/18 01/05/21 Prasterone (Dhea) [Dhea] 1 tab PO DAILY 12/25/18 01/05/21 Pregnanedione 1 each PO DAILY 12/25/18 01/05/21 S-Adenosylmethionine Sul Tosyl 400 mg PO PRN PRN 01/06/19 01/05/21 [Deniz-E] Vitamin B Complex 1 each PO DAILY 01/06/19 01/05/21 cephALEXin [Keflex] 500 mg PO Q6H #28 01/05/21 - Allergies Allergies/Adverse Reactions: Allergies Allergy/AdvReac Type Severity Reaction Status Date / Time Sulfa (Sulfonamide AdvReac Nausea Verified 01/05/21 07:46 Antibiotics) - Social History Does the pt smoke?: No Smoking Status: Never smoker Does the pt drink ETOH?: No Does the pt have substance abuse?: No - Immunizations Immunizations are current?: Yes - POLST Patient has POLST: No PD ED PE NORMAL - Vitals Vital signs reviewed: Yes - General General: Alert and oriented X 3, No acute distress, Well developed/nourished - HEENT HEENT: Atraumatic, PERRL, EOMI - Derm Derm: Other (Calor, rubor, dolor to right palm of the hand with minimal streaking erythema up to the wrist.) - Extremities Extremities: No deformity, Other (2+ bilateral radial pulse. Normal sensation and capillary refill. Normal range of motion of all fingers of the right hand as well as the wrist. Normal thumb opposition) - Neuro Neuro: Alert and oriented X 3, No motor deficit, No sensory deficit Results - Vitals Vitals: Vital Signs - 24 hr 01/05/21 07:44 Temperature 36.4 C L Heart Rate 67 Respiratory 16 Rate Blood Pressure 147/75 H O2 Saturation 98 Oxygen O2 Source Room air PD MEDICAL DECISION MAKING - ED course ED course: 80-year-old woman presented with hand infection secondary to wasp sting a few days ago. Conservative measures discussed and antibiotics prescribed. Return precautions given. Departure - Departure Disposition: 01 Home, Self Care Clinical Impression: Cellulitis Condition: Good Instructions: Cellulitis Dc Prescriptions: cephALEXin [Keflex] 500 mg PO Q6H #28 Comments: You were seen in the emergency department for infection of the right hand. Please take your antibiotics as prescribed. Return to the emergency department if you do not have improvement in 48 hours or if you have any new or worsening symptoms. follow-up with your primary doctor
== END 2021-01-05 08:19 | disposition home or self-care (01) ==
LOC: ED 07:37
DX: L03.113 Cellulitis of right upper limb (principal); T63.461A Toxic effect of venom of wasps, accidental (unintentional), initial encounter; I10 Essential (primary) hypertension
CPT/HCPCS: 99282; 99284; A9270

== ENCOUNTER 2021-07-20 14:23 | Outpatient (CLI) | payer MEDICARE, OTHER | END 2021-07-20 14:24 | disposition critical access hospital (66) | LOC: EMS 14:23 | DX: R04.1 Hemorrhage from throat (principal); M25.551 Pain in right hip; M25.511 Pain in right shoulder | CPT/HCPCS: A0425; A0429 ==

== ENCOUNTER 2021-07-20 14:31 | Emergency (ER) | payer MEDICARE, OTHER ==
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
[2021-07-20] MEDS ORDERED: iohexoL-300 100 ML VIAL ONE (15:21)
[2021-07-20 15:32] LABS: BASOPHILS # (AUTO) 0.1 10^3/uL (0.0-0.1); BASOPHILS % (AUTO) 0.9 %; EOSINOPHILS # (AUTO) 0.1 10^3/uL (0.0-0.7); EOSINOPHILS % (AUTO) 1.4 %; HCT - HEMATOCRIT 42.6 % (37.0-47.0); HGB - HEMOGLOBIN 14.3 g/dL (12.0-16.0); LYMPHOCYTES # (AUTO) 1.5 10^3/uL (1.5-3.5); LYMPHOCYTES % (AUTO) 23.5 %; MEAN CORPUSCULAR HEMOGLOBIN 31.6 pg (27.0-31.0); MEAN CORPUSCULAR HGB CONC 33.6 g/dL (32.0-36.0); MEAN PLATELET VOLUME 8.8 fL (7.9-10.8); MONOCYTES # (AUTO) 0.3 10^3/uL (0.0-1.0); MONOCYTES % (AUTO) 4.7 %; NEUTROPHILS # (AUTO) 4.3 10^3/uL (1.5-6.6); NEUTROPHILS % (AUTO) 68.1 %; PLT - PLATELET COUNT 303 10^3/uL (130-450); RED BLOOD COUNT 4.53 10^6/uL (4.20-5.40); RED CELL DISTRIBUTION WIDTH 11.9 % (12.0-15.0); WHITE BLOOD COUNT 6.4 x10^3/uL (4.8-10.8)
[2021-07-20 15:46] LABS: ALBUMIN 4.1 g/dL (3.2-5.5); ALBUMIN/GLOBULIN RATIO 1.3 (1.0-2.2); ALKALINE PHOSPHATASE 78 IU/L (42-121); ALT ALANINE AMINOTRANSFERASE 29 IU/L (10-60); AST ASPARTATE AMINOTRANSFERASE 37 IU/L (10-42); BILIRUBIN,TOTAL 0.7 mg/dL (0.2-1.0); BUN - BLOOD UREA NITROGEN 16 mg/dL (6-20); CALCIUM 9.4 mg/dL (8.5-10.3); CARBON DIOXIDE - CO2 29 mmol/L (21-32); CHLORIDE 100 mmol/L (101-111); CREATININE 0.7 mg/dL (0.4-1.0); ETOH - ETHANOL < 5.0 mg/dL; GFR - MDRD 81 (>89); GLUCOSE 123 mg/dL (70-100); LIPASE 44 U/L (22-51); POTASSIUM 3.8 mmol/L (3.5-5.0); SODIUM 138 mmol/L (135-145); TOTAL PROTEIN 7.2 g/dL (6.7-8.2)
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
[2021-07-20] MEDS: MORPHINE 2 MG/ML CARPUJECT IVP STA (16:38)
[2021-07-20] MEDS: oxyCODONE 5 MG TABLET PO STA (17:49)
[2021-07-20] MEDS: ONDANSETRON 4 MG/2 ML VIAL IVP STA (18:19)
[2021-07-20 19:01] VITALS: BP 162/67
== END 2021-07-20 18:40 | disposition home or self-care (01) ==
LOC: EDUNIT# → ED 14:31
DX: S22.000A Wedge compression fracture of unspecified thoracic vertebra, initial encounter for closed fracture (principal); V47.5XXA Car driver injured in collision with fixed or stationary object in traffic accident, initial encounter; I10 Essential (primary) hypertension
CPT/HCPCS: 36415; 70450; 71045; 71260; 72125; 73502; 74177; 80053; 83690; 84484; 85025; 93005; 96374; 96375; 99284; A9270; G0480; Q9967; 80320

== ENCOUNTER 2021-09-18 08:40 | Outpatient (CLI) | payer MEDICARE, OTHER ==
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
== END 2021-09-18 08:41 | disposition home or self-care (01) ==
LOC: DI 08:40
PROVIDERS: ATTEND Family Medicine
DX: Z78.0 Asymptomatic menopausal state (principal); M85.89 Other specified disorders of bone density and structure, multiple sites

== ENCOUNTER 2021-11-01 08:53 | Outpatient (CLI) | payer MEDICARE, OTHER ==
--- NOTE | 2021-11-02 09:48 | Mammography Report ---
BILATERAL DIGITAL SCREENING MAMMOGRAM 3D/2D: 11/01/2021 CLINICAL: Family history of breast cancer. Routine screening. Comparison is made to exams dated: 09/22/2020 mammogram, 07/16/2016 mammogram, and 06/14/2015 mammogram - [facility]. There are scattered fibroglandular elements in both breasts. No significant masses, calcifications, or other findings are seen in either breast. There has been no significant interval change. IMPRESSION: NEGATIVE There is no mammographic evidence of malignancy. A 1 year screening mammogram is recommended. This exam was interpreted at Station ID: [id number]. NOTE: For mammograms, a report in lay terms will be sent to the patient. Approximately 15% of breast malignancies will not be visualized mammographically. In the management of a palpable breast mass, a negative mammogram must not discourage biopsy of a clinically suspicious lesion. Electronically Signed By: Jin Arroyo acr/penrad:11/01/2021 17:17:03 ACR BI-RADS Category 1: Negative 3341F PARENCHYMAL PATTERN: (A) - The breast(s) demonstrate(s) scattered fibroglandular densities. BI-RADS CATEGORY: (1) - 1 RECOMMENDATION: (ANNUAL) - Recommend routine annual screening mammography. [id number] 1 year screening LATERALITY: (B)
== END 2021-11-01 08:54 | disposition home or self-care (01) ==
LOC: DI.N 08:53
PROVIDERS: ATTEND Family Medicine
DX: Z12.31 Encounter for screening mammogram for malignant neoplasm of breast (principal); Z80.3 Family history of malignant neoplasm of breast

== ENCOUNTER 2021-11-07 10:36 | Outpatient (CLI) | payer MEDICARE, OTHER | END 2021-11-07 10:37 | disposition home or self-care (01) | LOC: RT 10:36 | PROVIDERS: ATTEND Family Medicine | DX: Z01.810 Encounter for preprocedural cardiovascular examination (principal); M16.11 Unilateral primary osteoarthritis, right hip; I10 Essential (primary) hypertension | CPT/HCPCS: 93005 ==

== ENCOUNTER 2022-02-21 09:19 | Outpatient (CLI) | payer MEDICARE, OTHER | END 2022-02-21 09:20 | disposition home or self-care (01) | LOC: LAB 09:19 | PROVIDERS: ATTEND Internal Medicine Pulmonary Disease | DX: J47.9 Bronchiectasis, uncomplicated (principal) | CPT/HCPCS: 81599; 87070; 87205 ==

== ENCOUNTER 2022-03-13 08:36 | Outpatient (CLI) | payer MEDICARE, OTHER | END 2022-03-13 08:37 | disposition home or self-care (01) | LOC: LAB 08:36 | PROVIDERS: ATTEND Internal Medicine Pulmonary Disease | DX: J47.9 Bronchiectasis, uncomplicated (principal) | CPT/HCPCS: 81599; 87101; 87206 ==

== ENCOUNTER 2022-03-15 07:17 | Outpatient (CLI) | payer MEDICARE, OTHER ==
[2022-03-15 08:01] LABS: BASOPHILS # (AUTO) 0.1 10^3/uL (0.0-0.1); BASOPHILS % (AUTO) 1.5 %; EOSINOPHILS # (AUTO) 0.2 10^3/uL (0.0-0.7); EOSINOPHILS % (AUTO) 3.1 %; HCT - HEMATOCRIT 40.9 % (37.0-47.0); HGB - HEMOGLOBIN 13.7 g/dL (12.0-16.0); LYMPHOCYTES # (AUTO) 1.9 10^3/uL (1.5-3.5); LYMPHOCYTES % (AUTO) 39.3 %; MEAN CORPUSCULAR HEMOGLOBIN 30.9 pg (27.0-31.0); MEAN CORPUSCULAR HGB CONC 33.5 g/dL (32.0-36.0); MEAN CORPUSCULAR VOLUME 92.3 fL (81.0-99.0); MEAN PLATELET VOLUME 8.8 fL (7.9-10.8); MONOCYTES # (AUTO) 0.4 10^3/uL (0.0-1.0); MONOCYTES % (AUTO) 9.1 %; NEUTROPHILS # (AUTO) 2.3 10^3/uL (1.5-6.6); NEUTROPHILS % (AUTO) 46.8 %; PLT - PLATELET COUNT 241 10^3/uL (130-450); RED BLOOD COUNT 4.43 10^6/uL (4.20-5.40); RED CELL DISTRIBUTION WIDTH 12.3 % (12.0-15.0); WHITE BLOOD COUNT 4.8 x10^3/uL (4.8-10.8)
[2022-03-15 08:21] LABS: % IRON SATURATION 24 % (20-50); ALBUMIN 3.9 g/dL (3.2-5.5); ALBUMIN/GLOBULIN RATIO 1.4 (1.0-2.2); ALKALINE PHOSPHATASE 72 IU/L (42-121); ALT ALANINE AMINOTRANSFERASE 21 IU/L (10-60); AST ASPARTATE AMINOTRANSFERASE 26 IU/L (10-42); BILIRUBIN,TOTAL 0.7 mg/dL (0.2-1.0); BUN - BLOOD UREA NITROGEN 16 mg/dL (6-20); CALCIUM 9.1 mg/dL (8.5-10.3); CARBON DIOXIDE - CO2 27 mmol/L (21-32); CHLORIDE 104 mmol/L (101-111); CHOL/HDL RATIO 2.7 (<4.4); CHOLESTEROL 236 mg/dL; CREATININE 0.6 mg/dL (0.4-1.0); CRP HIGH SENSITIVITY 0.5 mg/L; GFR - MDRD 96 (>89); GLUCOSE 97 mg/dL (70-100); HDL CHOLESTEROL 86 mg/dL; IRON 92 ug/dL (28-170); LDL CHOLESTEROL,CALCULATED 137 mg/dL; LDL/HDL RATIO 1.6 (<4.4); SODIUM 139 mmol/L (135-145); TOTAL IRON BINDING CAPACITY 377 ug/dL (250-450); TOTAL PROTEIN 6.6 g/dL (6.7-8.2); TRANSFERRIN 269 mg/dL (192-382); TRIGLYCERIDES 65 mg/dL; VLDL CHOLESTEROL 13 mg/dL
[2022-03-15 08:25] LABS: THYROID STIMULATING HORMONE 2.58 uIU/mL (0.34-5.60)
[2022-03-15 08:26] LABS: FREE T3 3.71 pg/mL (2.5-3.9)
[2022-03-15 08:27] LABS: FREE T4 (FREE THYROXINE) 0.67 ng/dL (0.58-1.64)
[2022-03-15 09:08] LABS: ESTIMATED AVERAGE GLUCOSE 111 mg/dL (70-100); HEMOGLOBIN A1c% 5.5 % (4.27-6.07)
[2022-03-16 04:08] LABS: VITAMIN D 25-HYDROXY 45.5 ng/mL (30.0-100.0)
== END 2022-03-15 07:18 | disposition home or self-care (01) ==
LOC: LAB 07:17
PROVIDERS: ATTEND Family Medicine
DX: I10 Essential (primary) hypertension (principal); R53.83 Other fatigue; E78.5 Hyperlipidemia, unspecified; E03.9 Hypothyroidism, unspecified; R73.09 Other abnormal glucose; E55.9 Vitamin D deficiency, unspecified; D64.9 Anemia, unspecified
CPT/HCPCS: 36415; 80053; 80061; 82306; 82626; 82728; 83036; 83090; 83540; 83721; 84439; 84443; 84466; 84480; 84481; 85025; 86141

== ENCOUNTER 2022-05-22 10:06 | Outpatient (CLI) | payer MEDICARE, OTHER ==
[2022-05-22 10:22] LABS: BASOPHILS # (AUTO) 0.1 10^3/uL (0.0-0.1); BASOPHILS % (AUTO) 1.7 %; EOSINOPHILS # (AUTO) 0.1 10^3/uL (0.0-0.7); EOSINOPHILS % (AUTO) 2.1 %; HCT - HEMATOCRIT 41.6 % (37.0-47.0); HGB - HEMOGLOBIN 13.8 g/dL (12.0-16.0); LYMPHOCYTES # (AUTO) 1.9 10^3/uL (1.5-3.5); MEAN CORPUSCULAR HEMOGLOBIN 31.9 pg (27.0-31.0); MEAN CORPUSCULAR HGB CONC 33.2 g/dL (32.0-36.0); MEAN CORPUSCULAR VOLUME 96.1 fL (81.0-99.0); MEAN PLATELET VOLUME 8.8 fL (7.9-10.8); MONOCYTES # (AUTO) 0.5 10^3/uL (0.0-1.0); MONOCYTES % (AUTO) 8.7 %; NEUTROPHILS # (AUTO) 3.1 10^3/uL (1.5-6.6); NEUTROPHILS % (AUTO) 54.3 %; PLT - PLATELET COUNT 258 10^3/uL (130-450); RED BLOOD COUNT 4.33 10^6/uL (4.20-5.40); RED CELL DISTRIBUTION WIDTH 13.5 % (12.0-15.0); WHITE BLOOD COUNT 5.7 x10^3/uL (4.8-10.8)
[2022-05-22 10:41] LABS: ALBUMIN 4.1 g/dL (3.2-5.5); ALBUMIN/GLOBULIN RATIO 1.4 (1.0-2.2); BILIRUBIN,TOTAL 0.7 mg/dL (0.2-1.0); CALCIUM 8.9 mg/dL (8.5-10.3); CREATININE 0.6 mg/dL (0.4-1.0); POTASSIUM 4.1 mmol/L (3.5-5.0)
== END 2022-05-22 10:07 | disposition home or self-care (01) ==
LOC: LAB 10:06
PROVIDERS: ATTEND Family Medicine
DX: I10 Essential (primary) hypertension (principal); D64.9 Anemia, unspecified; R53.83 Other fatigue
CPT/HCPCS: 36415; 80053; 82728; 83540; 84466; 85025

== ENCOUNTER 2022-06-07 08:49 | Outpatient (CLI) | payer MEDICARE, OTHER ==
[2022-06-07 09:57] LABS: H. PYLORIS ANTIGEN STL NEGATIVE (Negative)
[2022-06-12 15:08] LABS: OVA + PARASITE EXAM Final report (.)
== END 2022-06-07 08:50 | disposition home or self-care (01) ==
LOC: LAB.R 08:49
PROVIDERS: ATTEND Family Medicine
DX: R19.7 Diarrhea, unspecified (principal); R15.2 Fecal urgency; R32 Unspecified urinary incontinence
CPT/HCPCS: 87177; 87338; 87493

== ENCOUNTER 2022-07-13 09:09 | Outpatient (CLI) | payer MEDICARE, OTHER | END 2022-07-13 09:10 | disposition home or self-care (01) | LOC: LAB 09:09 | PROVIDERS: ATTEND Internal Medicine | DX: Z12.11 Encounter for screening for malignant neoplasm of colon (principal); Z20.822 Contact with and (suspected) exposure to COVID-19 ==

== ENCOUNTER 2023-01-20 19:13 | Emergency (ER) | payer MEDICARE, OTHER ==
[2023-01-20 19:41] VITALS: BP 150/74
--- NOTE | 2023-01-20 20:20 | ED Physician Documentation ---
History of Present Illness - Stated complaint Stated Complaint: FEVER - Chief complaint Chief Complaint: Fever - History obtained from History obtained from: Patient - History of Present Illness Timing: Today Pain level max: 0 Pain level now: 0 - Additonal information Additional information: Patient is an 82-year-old female who presents to the emergency department complaining of fever today, cough congestion and body aches. Feels tired. Took a home COVID test that was negative. Recently returned home from a trip to [place]. No urinary symptoms. No diarrhea. No vomiting. Nothing makes it better or worse. Review of Systems Constitutional: reports: Fever, Myalgias Nose: reports: Rhinorrhea / runny nose, Congestion Respiratory: reports: Cough. denies: Dyspnea, Wheezing GI: denies: Abdominal Pain, Nausea, Vomiting, Diarrhea : denies: Dysuria, Frequency, Hesitancy Skin: denies: Rash PD PAST MEDICAL HISTORY - Past Medical History Cardiovascular: Hypertension, Arrhythmia Respiratory: None Neuro: None Endocrine/Autoimmune: HyPOthyroidism GI: Chronic constipation [employer]: Other : Incontinence HEENT: None Psych: None Musculoskeletal: Other Derm: None - Past Surgical History Past Surgical History: Yes General: Colonoscopy - Present Medications Home Medications: Ambulatory Orders Medication Instructions Recorded Confirmed Cholecalciferol (Vitamin D3) 2,000 unit PO DAILY 09/30/18 01/05/21 [Vitamin D] Levothyroxine Sodium 25 mcg PO BID 09/30/18 01/05/21 Progesterone, Micronized 100 mg PO DAILY PM 09/30/18 01/05/21 [Progesterone] Propranolol HCl 5 mg PO DAILY 12/09/18 01/05/21 Liothyronine Sodium 1 tab PO BID 12/25/18 01/05/21 Prasterone (Dhea) [Dhea] 1 tab PO DAILY 12/25/18 01/05/21 Pregnanedione 1 each PO DAILY 12/25/18 01/05/21 S-Adenosylmethionine Sul Tosyl 400 mg PO PRN PRN 01/06/19 01/05/21 [Deniz-E] Vitamin B Complex 1 each PO DAILY 01/06/19 01/05/21 cephALEXin [Keflex] 500 mg PO Q6H #28 01/05/21 Oxycodone HCl/Acetaminophen 1 - 2 each PO Q6H PRN #14 tablet 07/20/21 [Percocet 5-325 mg Tablet] - Allergies Allergies/Adverse Reactions: Allergies Allergy/AdvReac Type Severity Reaction Status Date / Time amoxicillin Allergy Hives Verified 01/20/23 19:30 Penicillins Allergy Hives Verified 01/20/23 19:30 Sulfa (Sulfonamide AdvReac Nausea Verified 01/05/21 07:46 Antibiotics) - Social History Does the pt smoke?: No Smoking Status: Never smoker Does the pt drink ETOH?: No Does the pt have substance abuse?: No - Immunizations Immunizations are current?: Yes - POLST Patient has POLST: No PD ED PE NORMAL - Vitals Vital signs reviewed: Yes - General General: Alert and oriented X 3, No acute distress - HEENT HEENT: PERRL, Ears normal, Moist mucous membranes, Pharynx benign - Neck Neck: Supple, no meningeal sign - Cardiac Cardiac: RRR, Strong equal pulses - Respiratory Respiratory: No respiratory distress, Clear bilaterally - Abdomen Abdomen: Soft, Non tender, Non distended - Back Back: No CVA TTP - Derm Derm: Warm and dry, No rash - Neuro Neuro: Alert and oriented X 3 - Psych Psych: Normal mood, Normal affect Results - Vitals Vitals: Vital Signs - 24 hr 01/20/23 19:30 Temperature 37.0 C Heart Rate 86 Respiratory 16 Rate Blood Pressure 150/74 H O2 Saturation 97 Oxygen O2 Source Room air - Labs Labs: Laboratory Tests 01/20/23 19:55 Nasal Adenovirus (PCR) NOT DETECTED Nasal B. parapertussis DNA (PCR) NOT DETECTED Nasal Coronavir 229E PCR NOT DETECTED Nasal Coronavir HKU1 PCR NOT DETECTED Nasal Coronavir NL63 PCR NOT DETECTED Nasal Coronavir OC43 PCR DETECTED A Nasal Enterovir/Rhinovir PCR NOT DETECTED Nasal Influenza B PCR NOT DETECTED Nasal Influenza A PCR NOT DETECTED Nasal Parainfluen 1 PCR NOT DETECTED Nasal Parainfluen 2 PCR NOT DETECTED Nasal Parainfluen 3 PCR NOT DETECTED Nasal Parainfluen 4 PCR NOT DETECTED Nasal RSV (PCR) NOT DETECTED Nasal B.pertussis DNA PCR NOT DETECTED Nasal C.pneumoniae (PCR) NOT DETECTED Rodrigo Human Metapneumo PCR NOT DETECTED Nasal M.pneumoniae (PCR) NOT DETECTED Nasal SARS-CoV-2 (PCR) NOT DETECTED - Rads (name of study) cxr Relevant Findings:: Final report received, See rad report PD Medical Decision Making - ED course Complexity details: reviewed results, considered differential, d/w patient ED course: 82-year-old female presents to the emergency department with what appears to be a viral syndrome. Respiratory PCR is positive for coronavirus OC 43. No hypoxia. No respiratory distress. No acute findings on chest x-ray. No evidence of pneumonia, sepsis. We will continue supportive care and have her follow-up with her doctor. Patient counseled regarding signs and symptoms for which I believe and urgent re-evaluation would be necessary. Patient with good understanding of and agreement to plan and is comfortable going home at this time This document was made in part using voice recognition software. While efforts are made to proofread this document, sound alike and grammatical errors may occur. Departure - Departure Disposition: 01 Home, Self Care Clinical Impression: Coronavirus infection Condition: Good Instructions: ED Viral Syndrome Follow-Up: your,doctor in 1 week [Other] Comments: You have tested positive for coronavirus OC 43, this is a different variant than COVID. This will self resolve. You can use Motrin or Tylenol as needed for fever/pain at home. You can use cough medication and decongestants at home as well. Please drink plenty of fluid. Please return if you worsen. Forms: PCP List Discharge Date/Time: 01/20/23 21:38
[2023-01-20 20:54] LABS: B. PARAPERTUSSIS- RESP PCR PAN NOT DETECTED; B. PERTUSSIS- RESP PCR PANEL NOT DETECTED; C. PNEUMONIAE- RESP PCR PANEL NOT DETECTED; CORONAVIRUS 229E-RESP PCR NOT DETECTED; CORONAVIRUS HKU1-RESP PCR NOT DETECTED; CORONAVIRUS NL63-RESP PCR NOT DETECTED; CORONAVIRUS OC43-RESP PCR DETECTED; HUMAN METAPNEUMOVIRUS NOT DETECTED; INFLUENZA A- RESP PCR PANEL NOT DETECTED; INFLUENZA B - RESP PCR PANEL NOT DETECTED; M. PNEUMONIAE- RESP PCR PANEL NOT DETECTED; PARAINFLUENZA VIRUS 1 NOT DETECTED; PARAINFLUENZA VIRUS 2 NOT DETECTED; PARAINFLUENZA VIRUS 3 NOT DETECTED; PARAINFLUENZA VIRUS 4 NOT DETECTED; RHINOVIRUS/ENTEROVIRUS NOT DETECTED; RSV- RESP PCR PANEL NOT DETECTED; SARS-CoV-2 -RESP PCR PANEL NOT DETECTED
--- NOTE | 2023-01-20 22:11 | XRAY Report ---
PROCEDURE: Chest 2 View X-Ray INDICATIONS: cough TECHNIQUE: 2 views of the chest were acquired. COMPARISON: Chest x-ray, 07/12/2021. FINDINGS: Surgical changes and devices: None. Lungs and pleura: No pleural effusions or pneumothorax. Lungs are clear. Mediastinum: Mediastinal contours appear normal. Heart size is normal. Bones and chest wall: No suspicious bony lesions. Overlying soft tissues appear unremarkable. IMPRESSION: No acute cardiopulmonary process. Reviewed by: Yina Cedillo MD on 01/20/2023 10:10 PM PDT Approved by: Yina Cedillo MD on 01/20/2023 10:10 PM PDT Station ID: [id number]
== END 2023-01-20 21:38 | disposition home or self-care (01) ==
LOC: ED 19:13
DX: B34.2 Coronavirus infection, unspecified (principal); Z20.822 Contact with and (suspected) exposure to COVID-19
CPT/HCPCS: 87633; 99283; 99284

== ENCOUNTER 2023-02-20 08:51 | Outpatient (CLI) | payer MEDICARE, OTHER ==
[2023-02-20 09:19] LABS: BASOPHILS # (AUTO) 0.1 10^3/uL (0.0-0.1); BASOPHILS % (AUTO) 1.9 %; EOSINOPHILS # (AUTO) 0.1 10^3/uL (0.0-0.7); EOSINOPHILS % (AUTO) 2.3 %; HCT - HEMATOCRIT 42.9 % (37.0-47.0); LYMPHOCYTES # (AUTO) 1.9 10^3/uL (1.5-3.5); LYMPHOCYTES % (AUTO) 40.6 %; MEAN CORPUSCULAR HGB CONC 32.6 g/dL (32.0-36.0); MEAN CORPUSCULAR VOLUME 95.1 fL (81.0-99.0); MEAN PLATELET VOLUME 8.9 fL (7.9-10.8); MONOCYTES # (AUTO) 0.4 10^3/uL (0.0-1.0); MONOCYTES % (AUTO) 7.6 %; NEUTROPHILS # (AUTO) 2.3 10^3/uL (1.5-6.6); NEUTROPHILS % (AUTO) 47.4 %; PLT - PLATELET COUNT 252 10^3/uL (130-450); RED BLOOD COUNT 4.51 10^6/uL (4.20-5.40); RED CELL DISTRIBUTION WIDTH 12.6 % (12.0-15.0); WHITE BLOOD COUNT 4.8 x10^3/uL (4.8-10.8)
[2023-02-20 09:29] LABS: % IRON SATURATION 28 % (20-50); ALBUMIN 4.3 g/dL (3.2-5.5); ALBUMIN/GLOBULIN RATIO 1.5 (1.0-2.2); ALKALINE PHOSPHATASE 85 IU/L (42-121); ALT ALANINE AMINOTRANSFERASE 14 IU/L (10-60); AST ASPARTATE AMINOTRANSFERASE 25 IU/L (10-42); BILIRUBIN,TOTAL 0.6 mg/dL (0.2-1.0); BUN - BLOOD UREA NITROGEN 14 mg/dL (6-20); CALCIUM 9.1 mg/dL (8.5-10.3); CARBON DIOXIDE - CO2 30 mmol/L (21-32); CHLORIDE 105 mmol/L (101-111); CHOL/HDL RATIO 2.6 (<4.4); CHOLESTEROL 235 mg/dL; CREATININE 0.8 mg/dL (0.6-1.3); CRP HIGH SENSITIVITY 0.37 mg/L; GFR - MDRD 69 (>89); GLUCOSE 98 mg/dL (74-104); HDL CHOLESTEROL 89 mg/dL; IRON 98 ug/dL (50-212); LDL CHOLESTEROL,CALCULATED 133 mg/dL; LDL/HDL RATIO 1.5 (<4.4); POTASSIUM 3.8 mmol/L (3.5-4.5); SODIUM 139 mmol/L (135-145); TOTAL IRON BINDING CAPACITY 346 ug/dL (250-450); TOTAL PROTEIN 7.1 g/dL (6.4-8.9); TRANSFERRIN 247 mg/dL (203-362); TRIGLYCERIDES 66 mg/dL (48-352); VLDL CHOLESTEROL 13 mg/dL
[2023-02-20 11:11] LABS: THYROID STIMULATING HORMONE 7.78 uIU/mL (0.34-5.60)
[2023-02-20 11:18] LABS: FERRITIN 44.5 ng/mL (11.0-306.8)
[2023-02-20 12:13] LABS: ESTIMATED AVERAGE GLUCOSE 111 mg/dL (70-100); HEMOGLOBIN A1c% 5.5 % (4.27-6.07)
[2023-02-21 06:10] LABS: VITAMIN D 25-HYDROXY 52.5 ng/mL (30.0-100.0)
[2023-02-27 01:08] LABS: REVERSE T3 SERUM 19.4 ng/dL (.)
== END 2023-02-20 08:52 | disposition home or self-care (01) ==
LOC: LAB 08:51
PROVIDERS: ATTEND Family Medicine
DX: E78.5 Hyperlipidemia, unspecified (principal); I10 Essential (primary) hypertension; R73.09 Other abnormal glucose; E03.9 Hypothyroidism, unspecified; E55.9 Vitamin D deficiency, unspecified; D64.9 Anemia, unspecified; R53.83 Other fatigue
CPT/HCPCS: 36415; 80053; 80061; 82306; 82626; 82728; 83036; 83090; 83540; 83721; 84439; 84443; 84466; 84480; 84481; 84482; 85025; 86141

== ENCOUNTER 2023-06-18 08:31 | Outpatient (CLI) | payer MEDICARE, OTHER ==
[2023-06-18 08:53] LABS: BASOPHILS # (AUTO) 0.1 10^3/uL (0.0-0.1); BASOPHILS % (AUTO) 1.8 %; EOSINOPHILS # (AUTO) 0.1 10^3/uL (0.0-0.7); EOSINOPHILS % (AUTO) 1.7 %; HCT - HEMATOCRIT 41.4 % (37.0-47.0); HGB - HEMOGLOBIN 13.7 g/dL (12.0-16.0); LYMPHOCYTES # (AUTO) 1.7 10^3/uL (1.5-3.5); LYMPHOCYTES % (AUTO) 31.3 %; MEAN CORPUSCULAR HEMOGLOBIN 31.4 pg (27.0-31.0); MEAN CORPUSCULAR HGB CONC 33.1 g/dL (32.0-36.0); MEAN CORPUSCULAR VOLUME 94.7 fL (81.0-99.0); MEAN PLATELET VOLUME 8.7 fL (7.9-10.8); MONOCYTES # (AUTO) 0.4 10^3/uL (0.0-1.0); NEUTROPHILS # (AUTO) 3.2 10^3/uL (1.5-6.6); PLT - PLATELET COUNT 287 10^3/uL (130-450); RED BLOOD COUNT 4.37 10^6/uL (4.20-5.40); RED CELL DISTRIBUTION WIDTH 12.3 % (12.0-15.0); WHITE BLOOD COUNT 5.4 x10^3/uL (4.8-10.8)
[2023-06-18 09:08] LABS: ALBUMIN 4.1 g/dL (3.2-5.5); ALBUMIN/GLOBULIN RATIO 1.5 (1.0-2.2); BILIRUBIN,TOTAL 0.6 mg/dL (0.2-1.0); CREATININE 0.7 mg/dL (0.6-1.3); POTASSIUM 3.8 mmol/L (3.5-4.5); TOTAL PROTEIN 6.8 g/dL (6.4-8.9)
[2023-06-18 11:31] LABS: ESTIMATED AVERAGE GLUCOSE 111 mg/dL (70-100); HEMOGLOBIN A1c% 5.5 % (4.27-6.07)
[2023-06-18 12:43] LABS: THYROID STIMULATING HORMONE 4.03 uIU/mL (0.34-5.60)
== END 2023-06-18 08:32 | disposition home or self-care (01) ==
LOC: LAB 08:31
PROVIDERS: ATTEND Family Medicine
DX: E03.9 Hypothyroidism, unspecified (principal); E78.5 Hyperlipidemia, unspecified; R53.83 Other fatigue; R73.09 Other abnormal glucose
CPT/HCPCS: 36415; 80053; 82626; 83036; 83090; 84439; 84443; 84480; 84481; 84482; 85025

== ENCOUNTER 2023-09-29 09:00 | Outpatient (CLI) | payer MEDICARE, OTHER ==
[2023-09-29 09:14] LABS: BASOPHILS # (AUTO) 0.1 10^3/uL (0.0-0.1); BASOPHILS % (AUTO) 1.5 %; EOSINOPHILS # (AUTO) 0.1 10^3/uL (0.0-0.7); EOSINOPHILS % (AUTO) 1.7 %; HCT - HEMATOCRIT 41.9 % (37.0-47.0); HGB - HEMOGLOBIN 13.8 g/dL (12.0-16.0); LYMPHOCYTES # (AUTO) 1.9 10^3/uL (1.5-3.5); LYMPHOCYTES % (AUTO) 36.5 %; MEAN CORPUSCULAR HEMOGLOBIN 31.7 pg (27.0-31.0); MEAN CORPUSCULAR HGB CONC 32.9 g/dL (32.0-36.0); MEAN CORPUSCULAR VOLUME 96.1 fL (81.0-99.0); MONOCYTES # (AUTO) 0.4 10^3/uL (0.0-1.0); MONOCYTES % (AUTO) 8.5 %; NEUTROPHILS # (AUTO) 2.7 10^3/uL (1.5-6.6); NEUTROPHILS % (AUTO) 51.6 %; PLT - PLATELET COUNT 256 10^3/uL (130-450); RED BLOOD COUNT 4.36 10^6/uL (4.20-5.40); RED CELL DISTRIBUTION WIDTH 12.3 % (12.0-15.0); WHITE BLOOD COUNT 5.2 x10^3/uL (4.8-10.8)
[2023-09-29 09:32] LABS: ALBUMIN 4.1 g/dL (3.2-5.5); ALBUMIN/GLOBULIN RATIO 1.5 (1.0-2.2); BILIRUBIN,TOTAL 0.6 mg/dL (0.2-1.0); CALCIUM 9.5 mg/dL (8.5-10.3); CREATININE 0.8 mg/dL (0.6-1.3); POTASSIUM 3.9 mmol/L (3.5-4.5); TOTAL PROTEIN 6.9 g/dL (6.4-8.9)
== END 2023-09-29 09:01 | disposition home or self-care (01) ==
LOC: LAB 09:00
PROVIDERS: ATTEND Family Medicine
DX: Z01.818 Encounter for other preprocedural examination (principal)
CPT/HCPCS: 36415; 80053; 85025; 87640

== ENCOUNTER 2024-01-29 09:59 | Day surgery (SDC) | payer MEDICARE, OTHER ==
[2024-01-29] MEDS: PROPARACAINE 0.5% OPHTH DROPS 15 ML ONE (10:15)
[2024-01-29] MEDS: KETOROLAC TROMETHAMINE 0.5% OPHTH DROPS 5 ML ONE (10:15)
[2024-01-29] MEDS: CYCLOPENTOLATE 1% OPHTH DROPS 2 ML ONE (10:20)
[2024-01-29] MEDS: PHENYLEPHRINE 2.5% OPHTH 2 ML DROPS ONE (10:20)
[2024-01-29] MEDS: LACTATED RINGERS 1,000 ML IV ONE (10:22)
[2024-01-29] MEDS ORDERED: MIDAZOLAM 2 MG/2 ML VIAL ONE (11:02)
--- NOTE | 2024-01-29 11:08 | ANESTHESIA ---
Pre-Anesthesia VS, & Labs - Diagnosis R cataract - Procedure R PhacoIOL Height: 5 ft 4 in Weight (kg): 60.2 kg Body Mass Index: 22.8 BMI Classification: Normal - NPO >8 hours - Is Patient ?: No Home Medications and Allergies Home Medications: Ambulatory Orders Aspirin [Vazalore] 325 mg PO DAILY PRN 01/29/24 Calcium Carb/Mag Ox/Zinc Sulf [Kbx-Kuz-Mbsq 334-134-5 mg Tab] 1 tab PO DAILY 01/29/24 Estrogen,Con/M-Progest Acet [Prempro 0.3 mg-1.5 mg Tablet] 1 tab PO DAILY 01/29/24 Losartan [Cozaar] 50 mg PO DAILY 01/29/24 Cholecalciferol (Vitamin D3) [Vitamin D] 2,000 unit PO DAILY 09/30/18 Levothyroxine Sodium 25 mcg PO HS 09/30/18 Progesterone, Micronized [Progesterone] 100 mg PO DAILY PM 09/30/18 Prasterone (Dhea) [Dhea] 1 tab PO DAILY 12/25/18 Vitamin B Complex 1 each PO DAILY 01/06/19 Aspirin [Vazalore] 325 mg PO DAILY PRN 01/29/24 Calcium Carb/Mag Ox/Zinc Sulf [Tui-Lzz-Bmrc 334-134-5 mg Tab] 1 tab PO DAILY 01/29/24 Estrogen,Con/M-Progest Acet [Prempro 0.3 mg-1.5 mg Tablet] 1 tab PO DAILY 01/29/24 Losartan [Cozaar] 50 mg PO DAILY 01/29/24 Allergies/Adverse Reactions: Allergies Allergy/AdvReac Type Severity Reaction Status Date / Time amoxicillin Allergy Hives Verified 01/29/24 10:00 Penicillins Allergy Hives Verified 01/29/24 10:00 Sulfa (Sulfonamide AdvReac Nausea Verified 01/29/24 10:00 Antibiotics) Anes History & Medical History - Anesthetic History Anesthesia Complications: reports: No previous complications Family history of Anesthesia Complications: Denies Family history of Malignant Hyperthermia: Denies - Medical History Cardiovascular: reports: Hypertension Pulmonary: reports: None Gastrointestinal: reports: None Urinary: reports: None Neuro: reports: None Musculoskeletal: reports: None Endocrine/Autoimmune: reports: HyPOthyroidism Blood Disorders: reports: None Skin: reports: None Smoking Status: Never smoker Psychosocial: reports: No issues indicated History of Cancer?: No - Surgical History General: reports: Colonoscopy Eyes Ears Nose Throat (EENT): reports: Cataracts Orthopedic: reports: Hip replacement Exam General: Alert, Oriented x3, Cooperative Dental: WNL Mouth Openin Fingerbreadth Neck Mobility: Normal Mallampati classification: I Thyromental Distance: 4-6 cm Respiratory: Lungs clear Cardiovascular: Regular rate Plan Anesthesia Type: MAC Consent for Procedure(s) Verified and Reviewed: Yes Code Status: Attempt Resuscitation ASA classification: 2-Mild systemic disease Is this case an emergency?: No
[2024-01-29] MEDS ORDERED: EPINEPHrine 1 MG/ML AMP ONE (11:18)
[2024-01-29] MEDS ORDERED: TIMOLOL 0.5% OPHTH DROPS ONE (11:19)
[2024-01-29] MEDS ORDERED: BRIMONIDINE 0.2% OPHTH DROPS 5 ML ONE (11:19)
[2024-01-29] MEDS ORDERED: TRIAMCIN/MOXIFLOX OPHTHALMIC 0.6 ML VIAL IO ONE (11:19)
[2024-01-29] MEDS ORDERED: BSS/LIDOCAINE/EPINEPHRINE 1 ML VIAL ONE (11:19)
[2024-01-29] MEDS ORDERED: LIDOCAINE-PF 2% 10 ML AMP SUBQ ONE (11:40)
[2024-01-29] MEDS ORDERED: fentaNYL 100 MCG/2 ML VIAL ONE (11:43)
[2024-01-29] MEDS ORDERED: PROPOFOL 200 MG/20 ML VIAL IVP ONE (11:44)
[2024-01-29] MEDS ORDERED: HYDROmorphone 0.5 MG/0.5 ML SYRINGE IVP PRN (11:54)
[2024-01-29] MEDS ORDERED: ATROPINE ABBOJECT 1 MG/10 ML SYRINGE IVP PRN (11:54)
[2024-01-29] MEDS ORDERED: ONDANSETRON 4 MG/2 ML VIAL IVP PRN (11:54)
[2024-01-29] MEDS ORDERED: MORPHINE 2 MG/ML CARPUJECT IVP PRN (11:54)
[2024-01-29] MEDS ORDERED: NALOXONE 0.4 MG/ML VIAL IVP PRN (11:54)
[2024-01-29] MEDS ORDERED: METOCLOPRAMIDE 10 MG/2 ML VIAL IVP PRN (11:54)
[2024-01-29] MEDS ORDERED: fentaNYL 100 MCG/2 ML VIAL IVP PRN (11:54)
[2024-01-29] MEDS ORDERED: ePHEDrine 50 MG/ML VIAL IVP PRN (11:54)
[2024-01-29] MEDS: BRIMONIDINE 0.2% OPHTH DROPS 5 ML OPTH ONE (11:56)
[2024-01-29] MEDS: EPINEPHrine 1 MG/ML AMP IR ONE (11:56)
[2024-01-29] MEDS: VANCOMYCIN OPHTH (TOPICAL) 10 MG/ML SYRINGE TOP ONE (11:57)
[2024-01-29] MEDS: BSS/LIDOCAINE/EPINEPHRINE 1 ML SYRINGE IO ONE (11:57)
[2024-01-29] MEDS: TIMOLOL 0.5% OPHTH DROPS OPTH ONE (11:57)
[2024-01-29] MEDS: PROPARACAINE 0.5% OPHTH DROPS 15 ML RIGHTEYE ONE (11:57)
[2024-01-29] MEDS: TRIAMCIN/MOXIFLOX OPHTHALMIC 0.6 ML VIAL IO ONE (11:57)
[2024-01-29] MEDS ORDERED: LACTATED RINGERS 1,000 ML IV SCH (12:00)
[2024-01-29] MEDS: LACTATED RINGERS 800 ML IV ONE (12:12)
--- NOTE | 2024-01-29 12:12 | OPERATIVE REPORT ---
Operative Report - Other Other Information/Narrative: Date of Surgery: 01/29/24 Preop Dx: Visually significant cataract right eye. This was the first cataract surgery. Postop Dx: Same Procedure: Phacoemulsification with posterior chamber intraocular lens implant right eye Surgeon: Dr. Jerry Rhodes Anesthesia: General anesthesia Complications: None Operative Indications: This is a 83-year-old F with progressive vision loss in the right eye due to 2+ nuclear sclerotic and 3+ cortical cataract. Best corrected visual acuity was 20/30 with glare to 20/800 vision in the right eye. Indications for surgery were: - Overall decrease in vision - Difficulty seeing words on a computer screen - Difficulty reading - Difficulty seeing words, closed captions, or game scores on TV - Difficulty seeing street signs - Difficulty driving in low light or at night - Difficulty driving at night because of headlights from other vehicles - Difficulty with glare or bright lights in any situation The patient was consented at length concerning the risks and benefits of cataract surgery after which the patient expressed a desire to proceed with surgery. Operative Procedure: A surgical time-out was conducted confirming correct patient, correct procedure, and correct surgical site. The patient was taken into OR#3 and initially placed under monitored anesthesia care. However, she became dis-inhibited and would not stop moving. After attempting Propofol sedation she was intubated. The patient was then prepped and draped in the usual sterile fashion. The eye was entered at the 6 and 3 oclock positions. Intracameral Shugarcaine was injected into the anterior chamber followed by a dispersive viscoelastic. A continuous-tear curvilinear capsulorhexis was performed. The nucleus was hydrodissected and phacoemulsified. The cortex was evacuated using automated infusion and aspiration. A cohesive viscoelastic was injected into the capsular bag and a 23.0 diopter intraocular lens was inserted into the bag. Infusion and aspiration were used to evacuate the viscoelastic materials from the eye. The wounds were hydrated and the eye inflated to physiologic pressure using balanced salt solution. Approximately 0.25ml of a mixture of triamcinolone and moxifloxacin was injected trans-sclerally into the vitreous in the inferotemporal quadrant using a 30 gauge cannula. An additional 0.25ml of a mixture of triamcinolone and moxifloxacin was injected subconjunctivally in the superior quadrant for infection and inflammation prophylaxis. Wound integrity was checked with Weck-Sylvia sponges. The patient was extubated, taken from the operating room in good condition, and given post-op instructions.
[2024-01-29 13:02] VITALS: BP 148/69; O2SAT 99
--- NOTE | 2024-01-29 14:15 | ANESTHESIA POST OP EVALUATION ---
Anesthesia Post Eval - Post Anesthesia Eval Vitals: Last Vital Signs Temp 36.2 C L 01/29/24 12:55 Pulse 65 01/29/24 13:00 Resp 16 01/29/24 13:00 BP 148/69 H 01/29/24 13:00 Pulse Ox 99 01/29/24 13:00 O2 Flow Rate CV Function Including HR & BP: Stable Pain Control: Satisfactory Nausea & Vomiting: Negative Mental Status: Baseline Respiratory Status: Airway Patent Hydration Status: Satisfactory Anesthesia Complications: None
== END 2024-01-29 10:00 | disposition home or self-care (01) ==
LOC: SDS 09:59
PROVIDERS: ATTEND Ophthalmology
DX: H25.811 Combined forms of age-related cataract, right eye (principal); E03.9 Hypothyroidism, unspecified; I10 Essential (primary) hypertension
CPT/HCPCS: 66984; A9270; J3490; J7120

== ENCOUNTER 2024-03-11 06:56 | Day surgery (SDC) | payer MEDICARE, OTHER ==
[2024-03-11] MEDS: CYCLOPENTOLATE 1% OPHTH DROPS 2 ML ONE (07:23)
[2024-03-11] MEDS: PROPARACAINE 0.5% OPHTH DROPS 15 ML ONE (07:23)
[2024-03-11] MEDS: KETOROLAC TROMETHAMINE 0.5% OPHTH DROPS 5 ML ONE (07:23)
[2024-03-11] MEDS: PHENYLEPHRINE 2.5% OPHTH 2 ML DROPS ONE (07:23)
[2024-03-11] MEDS: LACTATED RINGERS 1,000 ML IV ONE ×2 (07:25→08:25)
[2024-03-11] MEDS ORDERED: EPINEPHrine 1 MG/ML AMP ONE (07:51)
[2024-03-11] MEDS ORDERED: BRIMONIDINE 0.2% OPHTH DROPS 5 ML ONE (07:52)
[2024-03-11] MEDS ORDERED: TRIAMCIN/MOXIFLOX OPHTHALMIC 0.6 ML VIAL IO ONE (07:52)
[2024-03-11] MEDS ORDERED: TIMOLOL 0.5% OPHTH DROPS ONE (07:52)
[2024-03-11] MEDS ORDERED: BSS/LIDOCAINE/EPINEPHRINE 1 ML VIAL ONE (07:52)
--- NOTE | 2024-03-11 08:04 | ANESTHESIA ---
Pre-Anesthesia VS, & Labs - Diagnosis L cataract - Procedure L PhacoIOL Vital Signs: Temp Pulse Resp BP Pulse Ox O2 Flow Rate 36.6 C 66 14 127/68 98 03/11/24 07:27 03/11/24 07:27 03/11/24 07:27 03/11/24 07:27 03/11/24 07:27 Height: 5 ft 4 in Weight (kg): 62.8 kg Body Mass Index: 23.8 BMI Classification: Normal - NPO >8 hours - Is Patient ?: No Home Medications and Allergies Cholecalciferol (Vitamin D3) [Vitamin D] 2,000 unit PO DAILY 09/30/18 Levothyroxine Sodium 25 mcg PO HS 09/30/18 Progesterone, Micronized [Progesterone] 100 mg PO DAILY PM 09/30/18 Prasterone (Dhea) [Dhea] 1 tab PO DAILY 12/25/18 Vitamin B Complex 1 each PO DAILY 01/06/19 Aspirin [Vazalore] 325 mg PO DAILY PRN 01/29/24 Calcium Carb/Mag Ox/Zinc Sulf [Frp-Vfp-Ktip 334-134-5 mg Tab] 1 tab PO DAILY 01/29/24 Estrogen,Con/M-Progest Acet [Prempro 0.3 mg-1.5 mg Tablet] 1 tab PO DAILY 01/29/24 Losartan [Cozaar] 50 mg PO DAILY 01/29/24 Allergies/Adverse Reactions: Allergies Allergy/AdvReac Type Severity Reaction Status Date / Time amoxicillin Allergy Hives Verified 01/29/24 10:00 Penicillins Allergy Hives Verified 01/29/24 10:00 Sulfa (Sulfonamide AdvReac Nausea Verified 01/29/24 10:00 Antibiotics) Anes History & Medical History - Anesthetic History Anesthesia Complications: reports: No previous complications Family history of Anesthesia Complications: Denies Family history of Malignant Hyperthermia: Denies - Medical History Cardiovascular: reports: Hypertension Pulmonary: reports: None Gastrointestinal: reports: None Urinary: reports: None Neuro: reports: None Musculoskeletal: reports: None Endocrine/Autoimmune: reports: HyPOthyroidism Blood Disorders: reports: None Skin: reports: None Smoking Status: Never smoker - Surgical History General: reports: Colonoscopy Eyes Ears Nose Throat (EENT): reports: Cataracts Orthopedic: reports: Hip replacement Exam General: Alert, Oriented x3, Cooperative Dental: WNL Mouth Openin Fingerbreadth Neck Mobility: Normal Mallampati classification: II Thyromental Distance: 4-6 cm Respiratory: Lungs clear Cardiovascular: Regular rate Plan Anesthesia Type: MAC Consent for Procedure(s) Verified and Reviewed: Yes Code Status: Attempt Resuscitation ASA classification: 2-Mild systemic disease Is this case an emergency?: No
[2024-03-11] MEDS ORDERED: MIDAZOLAM 2 MG/2 ML VIAL ONE (08:07)
[2024-03-11] MEDS ORDERED: fentaNYL 100 MCG/2 ML VIAL ONE (08:07)
[2024-03-11] MEDS: TIMOLOL 0.5% OPHTH DROPS OPTH ONE (08:15)
[2024-03-11] MEDS: BRIMONIDINE 0.2% OPHTH DROPS 5 ML OPTH ONE (08:15)
[2024-03-11] MEDS: EPINEPHrine 1 MG/ML AMP IR ONE (08:15)
[2024-03-11] MEDS: BSS/LIDOCAINE/EPINEPHRINE 1 ML SYRINGE IO ONE (08:15)
[2024-03-11] MEDS: TRIAMCIN/MOXIFLOX OPHTHALMIC 0.6 ML VIAL IO ONE (08:16)
[2024-03-11] MEDS: VANCOMYCIN OPHTH (TOPICAL) 10 MG/ML SYRINGE TOP ONE (08:16)
[2024-03-11] MEDS: PROPARACAINE 0.5% OPHTH DROPS 15 ML LEFTEYE ONE (08:16)
--- NOTE | 2024-03-11 08:30 | OPERATIVE REPORT ---
Operative Report - Other Other Information/Narrative: Date of Surgery: 03/11/24 Preop Dx: Visually significant cataract left eye. Cataract surgery was performed in the right eye on . Postop Dx: Same Procedure: Phacoemulsification with posterior chamber intraocular lens implant left eye Surgeon: Dr. Jerry Rhodes Anesthesia: Monitored anesthesia care Complications: None Operative Indications: This is a 83-year-old F with progressive vision loss in the left eye due to 2+ nuclear sclerotic and 3+ cortical cataract. Best corrected visual acuity was 20/30 with glare to 20/500 vision in the left eye. Indications for surgery were: - Overall decrease in vision - Difficulty seeing words on a computer screen - Difficulty reading - Difficulty seeing words, closed captions, or game scores on TV - Difficulty seeing street signs - Difficulty driving in low light or at night - Difficulty driving at night because of headlights from other vehicles - Difficulty with glare or bright lights in any situation The patient was consented at length concerning the risks and benefits of cataract surgery after which the patient expressed a desire to proceed with surgery. Operative Procedure: The patient was taken into OR#3 and placed under monitored anesthesia care. A surgical time-out was conducted confirming correct patient, correct procedure, and correct surgical site. The patient was given topical anesthesia and then prepped and draped in the usual sterile fashion. The eye was entered at the 6 and 3 oclock positions. Intracameral Shugarcaine was injected into the anterior chamber followed by a dispersive viscoelastic. A continuous-tear curvilinear capsulorhexis was performed. The nucleus was hydrodissected and phacoemulsified. The cortex was evacuated using automated infusion and aspiration. A cohesive viscoelastic was injected into the capsular bag and a 23.0 diopter intraocular lens was inserted into the bag. Infusion and aspiration were used to evacuate the viscoelastic materials from the eye. The wounds were hydrated and the eye inflated to physiologic pressure using balanced salt solution. Approximately 0.25ml of a mixture of triamcinolone and moxifloxacin was injected trans-sclerally into the vitreous in the inferotemporal quadrant using a 30 gauge cannula. An additional 0.25ml of a mixture of triamcinolone and moxifloxacin was injected subconjunctivally in the superior quadrant for infection and inflammation prophylaxis. Wound integrity was checked with Weck-Sylvia sponges. The patient was taken from the operating room in good condition and given post-op instructions.
[2024-03-11 08:51] VITALS: BP 117/60; O2SAT 97
--- NOTE | 2024-03-11 11:08 | ANESTHESIA POST OP EVALUATION ---
Anesthesia Post Eval - Post Anesthesia Eval Vitals: Last Vital Signs Temp 36.3 C L 03/11/24 08:40 Pulse 74 03/11/24 08:40 Resp 16 03/11/24 08:40 BP 117/60 03/11/24 08:40 Pulse Ox 97 03/11/24 08:40 O2 Flow Rate CV Function Including HR & BP: Stable Pain Control: Satisfactory Nausea & Vomiting: Negative Mental Status: Baseline Respiratory Status: Airway Patent Hydration Status: Satisfactory Anesthesia Complications: None
== END 2024-03-11 06:57 | disposition home or self-care (01) ==
LOC: SDS 06:56
PROVIDERS: ATTEND Ophthalmology
DX: H25.812 Combined forms of age-related cataract, left eye (principal); E03.9 Hypothyroidism, unspecified; I10 Essential (primary) hypertension; Z98.41 Cataract extraction status, right eye
CPT/HCPCS: 66984; A9270; J3490; J7120